=== PATIENT | female | born 1945 | race Caucasian/White ===

== ENCOUNTER 2016-09-12 12:02 | Observation (INO) ==
--- NOTE | 2016-09-12 12:11 | Emergency Department Note ---
Disposition Clinical Impression: Chest pain Qualifiers: Chest pain type: precordial pain Qualified Code(s): R07.2 - Precordial pain Disposition: Admitted As Inpatient Condition: Fair Time of Disposition: 19:38 Chest Pain HPI - General Chief Complaint: ED Chest Pain Stated Complaint: Chest pressure Time Seen by Provider: 09/12/16 12:10 Source: patient Mode of arrival: ambulatory Limitations: no limitations Vital Signs Reviewed: Yes Nursing Notes Reviewed: Yes - History of Present Illness HPI Narrative: 70-year-old female with history of CAD, status post CABG, she pretty presents with chest pressure at rest. She recently had a CABG 3 months prior, patient states that she has had chest pressure for the last 1-2 days. Worsening today, states to 5 out of 10. Similar to previous anginal pain. She also states that she has had trouble with her sternal wires, states that they have become loose at the superior aspect of her sternum. This is causing her some discomfort. Pt complaint: chest pain Onset: during rest Pain Location: substernal Severity: moderate Severity scale (1-10): 5 Pain Radiation: none Improves with: nothing Worsens with: nothing - Related Data Home Medications Medication Instructions Recorded Confirmed Atorvastatin [Lipitor] 80 mg PO HS 10/07/15 09/12/16 Folic Acid 1,600 mcg PO DAILY 10/07/15 09/12/16 Hydrochlorothiazide 25 mg PO DAILY 10/07/15 09/12/16 Multivitamin [Multivitamins] 1 tab PO DAILY 10/07/15 09/12/16 Omeprazole [PriLOSEC] 40 mg PO DAILY 10/07/15 09/12/16 Alendronate Sodium [Fosamax] 70 mg PO QWEEK 10/12/15 09/12/16 Aspirin [Adult Low Dose Aspirin EC] 81 mg PO DAILY 10/12/15 09/12/16 Clopidogrel [Plavix] 75 mg PO DAILY 10/12/15 09/12/16 Cyanocobalamin (Vitamin B-12) 500 mcg PO DAILY 04/23/16 09/12/16 [Vitamin B12] Cholecalciferol (D-3) [Vitamin D] 2,000 unit PO DAILY 09/12/16 09/12/16 Metoprolol [Lopressor] 25 mg PO BID 09/12/16 09/12/16 Allergies Allergy/AdvReac Type Severity Reaction Status Date / Time shellfish derived Allergy Hives Verified 09/12/16 12:12 All systems ED: reviewed and negative except as stated. Constitutional: Denies: fever, chills Eyes: Denies: eye pain, eye discharge ENT ED: Denies: ear pain, throat pain Cardiovascular: Reports: as per HPI, chest pain, dyspnea on exertion. Denies: palpitations, edema, syncope Respiratory: Denies: cough, dyspnea, wheezes Gastrointestinal: Denies: abdominal pain, nausea, vomiting Genitourinary: Denies: urgency, dysuria Musculoskeletal: Denies: back pain, neck pain Neurological: Denies: headache, weakness Chest Pain PMH - Past Medical History Medical history: Reports: arthritis (RA), asthma, coronary artery disease, diabetes, hyperlipidemia, hypertension, myocardial infarction, RA Surgical history: Reports: appendectomy, hysterectomy, orthopedic, other (right wrist), YOANNA/BSO Psychiatric history: Reports: no psych history - Social History Smoking Status: Former smoker Alcohol use: Reports: occasionally Drug use: Reports: none Physical Exam Constitutional: Appears mildly uncomfortable vital signs reviewed and wnl Neck: normal inspection, neck is supple, trachea midline Resp: normal chest inspection, CTA bilaterally, no resp distress CV: RRR, no m/g/r, midline incision consistent with previous CABG, well-healed, no obvious erythema mild ttp sternal superior tenderness GI: normal inspection, Soft, NTND, BS present Back: normal inspection, no tenderness to palpation Neuro: A&O3, no gross motor or sensory deficits bilaterally Skin: No rashes, skin warm, dry, intact Course Course Narrative: 70-year-old female with history of CAD, status post CABG, chest pain workup ordered, likely will be admission at this time I do not feel that she is acute coronary syndrome however will try and see if she is response to nitroglycerin, she is very high risk for heart score of 5, given multiple recent procedures including needed transferred to [facility] she has low threshold for admission. - Reevaluation(s) Reevaluation #1: Patient with a negative EKG and negative troponin, admitted to medicine service in stable condition. Vital Signs Temperature 98.0 F 09/12/16 12:07 Pulse Rate 67 09/12/16 12:07 Respiratory Rate 16 09/12/16 12:07 Blood Pressure 153/72 09/12/16 12:07 O2 Sat by Pulse Oximetry 98 09/12/16 12:07 Temperature 97.6 F 09/12/16 14:52 Pulse Rate 68 09/12/16 14:52 Respiratory Rate 14 09/12/16 14:52 Blood Pressure 150/75 09/12/16 14:52 O2 Sat by Pulse Oximetry 95 09/12/16 14:52 Oxygen Delivery Oxygen Delivery Room Air Chest Pain - Differential Diagnosis Likely: atypical chest pain, chest pain - Medical Records Medical records reviewed: Yes I reviewed the patient's medical records. - Lab Data Lab results reviewed: Yes I reviewed the patient's lab results. Result diagrams: 09/12/16 12:24 09/12/16 12:24 Lab Results 09/12/16 09/12/16 09/12/16 Range/Units 12:24 12:24 12:24 WBC 7.3 (4.3-11.1) K/mcL RBC 5.00 H (3.82-4.97) M/mcL Hgb 14.5 (11.5-15.4) g/dL Hct 44.4 (35.3-44.9) % MCV 88.8 (83.0-100.0) fL MCH 29.0 (28.0-33.3) pg MCHC 32.7 (31.6-35.5) g/dL RDW 15.8 H (11.5-14.5) % Plt Count 192 (140-400) K/mcL MPV 11.2 (9.4-12.4) fL Immature Gran % 0.3 (0-4) % Seg Neutrophils % 60.9 % Lymphocytes % 25.9 % Monocytes % 11.4 % Eosinophils % 1.1 % Basophils % 0.4 % Neutrophils # 4.4 (1.6-8.9) K/mcL Lymphocytes # 1.9 (0.6-4.6) K/mcL Monocytes # 0.8 (0.0-1.3) K/mcL Eosinophils # 0.1 (0.0-0.6) K/mcL Basophils # 0.0 (0.0-0.2) K/mcL Sodium 137 (136-145) mEq/L Potassium 4.2 (3.5-4.5) mEq/L Chloride 100 (98-109) mEq/L Carbon Dioxide 26 (19-29) mEq/L BUN 13 (7-20) mg/dL Creatinine 0.86 (0.57-1.11) mg/dL Est GFR ( Amer) > 60 (> 60) Est GFR (Non-Af Amer) > 60 (> 60) BUN/Creatinine Ratio 15 (6-26) Glucose 103 H (70-99) mg/dL Calculated Osmolality 284 (280-300) Calcium 9.5 (8.6-10.8) mg/dL Troponin I (0-0.03) ng/mL B-Natriuretic Peptide 149 H (0-100) pg/mL 09/12/16 Range/Units 12:24 WBC (4.3-11.1) K/mcL RBC (3.82-4.97) M/mcL Hgb (11.5-15.4) g/dL Hct (35.3-44.9) % MCV (83.0-100.0) fL MCH (28.0-33.3) pg MCHC (31.6-35.5) g/dL RDW (11.5-14.5) % Plt Count (140-400) K/mcL MPV (9.4-12.4) fL Immature Gran % (0-4) % Seg Neutrophils % % Lymphocytes % % Monocytes % % Eosinophils % % Basophils % % Neutrophils # (1.6-8.9) K/mcL Lymphocytes # (0.6-4.6) K/mcL Monocytes # (0.0-1.3) K/mcL Eosinophils # (0.0-0.6) K/mcL Basophils # (0.0-0.2) K/mcL Sodium (136-145) mEq/L Potassium (3.5-4.5) mEq/L Chloride (98-109) mEq/L Carbon Dioxide (19-29) mEq/L BUN (7-20) mg/dL Creatinine (0.57-1.11) mg/dL Est GFR ( Amer) (> 60) Est GFR (Non-Af Amer) (> 60) BUN/Creatinine Ratio (6-26) Glucose (70-99) mg/dL Calculated Osmolality (280-300) Calcium (8.6-10.8) mg/dL Troponin I 0.02 (0-0.03) ng/mL B-Natriuretic Peptide (0-100) pg/mL - Radiology Data Radiology results reviewed: Yes I reviewed the patient's radiology results. Chest X-Ray 09/12/16 12:16 IMPRESSION: Discoid atelectasis overlying the left heart border. Increased lung markings at the right infrahilar region may be related to bronchitis. Superimposed pneumonia is difficult to exclude. Stable borderline cardiomegaly. D/ / Gordon Fermin MD / Gordon Fermin MD Interpreting Provider: Gordon Fermin MD - EKG Data EKG attestation: Yes I reviewed and interpreted this EKG. EKG results narrative: EKG reviewed no evidence of ST segment elevations or depressions, normal sinus rhythm EKG shows normal: sinus rhythm Rate: normal Rhythm: NSR [place]/QRS: normal Interpretation: unchanged when compared to prior tracing (date) Heart Score - Score History: Moderately Suspicious EKG: Non Specific repolarisation Disturbance Age: Greater than 65 Risk Factors: Equal/Greater than 3 risk factor or history of atherosclerotic disease Troponin: Less than normal limit HEART Score Total: 6 Attestation Statement - Attestation Attestation: I examined this patient and my medical decision-making was reviewed with the Resident Physician. I agree with the documented findings, disposition and treatment plan as described except to the extent set forth below. CP free at the time of my eval. Trop negative. Admitting for further work up.
[2016-09-12] MEDS ORDERED: Aspirin 81 MG TAB.CHEW PO ONE (12:17)
[2016-09-12] MEDS ORDERED: Nitroglycerin 0.4 MG TAB.SUBL SL ONE (12:17)
[2016-09-12 12:30] LABS: Basophils % 0.4 %; Eosinophils # 0.1 K/mcL (0.0-0.6); Eosinophils % 1.1 %; Hematocrit 44.4 % (35.3-44.9); Hemoglobin 14.5 g/dL (11.5-15.4); Immature Granulocytes % 0.3 % (0-4); Lymphocytes # 1.9 K/mcL (0.6-4.6); Lymphocytes % 25.9 %; Mean Corpuscular HGB Conc 32.7 g/dL (31.6-35.5); Mean Corpuscular Volume 88.8 fL (83.0-100.0); Mean Platelet Volume 11.2 fL (9.4-12.4); Monocytes # 0.8 K/mcL (0.0-1.3); Monocytes % 11.4 %; Neutrophils # 4.4 K/mcL (1.6-8.9); Platelet Count 192 K/mcL (140-400); Red Cell Distribution Width 15.8 % (11.5-14.5); Segmented Neutrophils % 60.9 %
[2016-09-12 12:43] LABS: BUN/Creatinine Ratio 15 (6-26); Blood Urea Nitrogen 13 mg/dL (7-20); Calcium 9.5 mg/dL (8.6-10.8); Carbon Dioxide 26 mEq/L (19-29); Chloride 100 mEq/L (98-109); Glucose 103 mg/dL (70-99); Osmolality,Calculated 284 (280-300); Potassium 4.2 mEq/L (3.5-4.5); Sodium 137 mEq/L (136-145); eGFR For African Americans > 60 (> 60); eGFR For Non-African Americans > 60 (> 60)
[2016-09-12] MEDS ORDERED: Acetaminophen 325 MG TABLET PO PRN (14:58)
[2016-09-12] MEDS ORDERED: Naloxone 0.4 MG/ML INJ IVP PRN (14:58)
--- NOTE | 2016-09-12 15:13 | Internal Med History&Physical ---
Date of Encounter: 09/12/16 Time of Encounter: 13:45 Assessment and Plan (1) Chest pain Current visit: Yes Status: Acute Chest pain with history of coronary artery disease and coronary artery. High risk for ACS. We will monitor with telemetry overnight in hospital under observation. Trend troponins. Continue home medications including aspirin and statin. Monitor vital signs closely. If troponins are negative, will plan for stress test in the morning. Qualifiers: Chest pain type: precordial pain Qualified Code(s): R07.2 - Precordial pain (2) CAD (coronary artery disease) Current visit: Yes Status: Chronic With chest pain. Continue home medications. Monitor with telemetry. Qualifiers: Coronary Disease-Associated Artery/Lesion type: [place] artery [place] vs. transplanted heart: [place] heart Associated angina: with other forms of angina Qualified Code(s): I25.118 - Atherosclerotic heart disease of [place] coronary artery with other forms of angina pectoris (3) Diabetes Current visit: Yes Status: Chronic Monitor blood sugars. Sliding scale insulin. Diabetic diet Qualifiers: Diabetes mellitus type: type 2 Diabetes mellitus complication status: without complication Diabetes mellitus detention insulin use: without lead application architect use Qualified Code(s): E11.9 - Type 2 diabetes mellitus without complications (4) Essential hypertension Current visit: Yes Status: Chronic At her blood pressure. Continue home medications. Internal Medicine - H&P: HPI Chief complaint: Chest pressure Admitted From: Emergency Dept Plans for Post Hospital Care: Home History of present illness: Ms. Quintanilla is a 70 year old female with a history of coronary artery disease and coronary artery bypass grafting presented to the ER with complaints of chest pain. Her symptoms have been going on for about 1 week now. She had coronary artery bypass grafting in March and since then has been pain-free. However since the past week she has been having central chest pressure that is nonradiating but feels similar to the pain she has had previously. Currently denies any shortness of breath palpitations, orthopnea or PND. No pedal edema either. Her pain responded to nitroglycerin. Past Med Surg Social Fam HX - Past Medical History Attestation: Yes The following information was validated with the patient. Medical history: arthritis (RA), asthma, coronary artery disease, diabetes, hyperlipidemia, hypertension, myocardial infarction, RA Psychiatric history: no psych history - Past Surgical History Surgical History: appendectomy, hysterectomy, orthopedic, other (right wrist), YOANNA/BSO - Social History Smoking Status: Former smoker Smokeless Tobacco Status: No Alcohol use: occasionally Drug use: none - Family History Father Living Status: Hx Family Cardiac Disorders: Yes ([place]) Hx Family Respiratory Disorders: No Hx Family Cancer: Yes (Prostate) Hx Family GI Disorders: No Hx Family Endocrine Disorder: No Hx Family Neuromuscular Disorders: No Hx Family Neurologic Disorders: No Hx Family HEENT Disorders: No Hx Family Autoimmune Disorders: No Mother Hx Family Cardiac Disorders: Yes ([place]) Hx Family Respiratory Disorders: No Hx Family Cancer: No Hx Family GI Disorders: No Hx Family Endocrine Disorder: Yes (DM) Hx Family Neuromuscular Disorders: No Hx Family Neurologic Disorders: No Hx Family HEENT Disorders: No Hx Family Autoimmune Disorders: No Internal Medicine - H&P: Meds Atorvastatin [Lipitor] 80 mg PO HS 10/07/15 [History] Folic Acid 1,600 mcg PO DAILY 10/07/15 [History] Hydrochlorothiazide 25 mg PO DAILY 10/07/15 [History] Multivitamin [Multivitamins] 1 tab PO DAILY 10/07/15 [History] Omeprazole [PriLOSEC] 40 mg PO DAILY 10/07/15 [History] Alendronate Sodium [Fosamax] 70 mg PO QWEEK 10/12/15 [History] Aspirin [Adult Low Dose Aspirin EC] 81 mg PO DAILY 10/12/15 [History] Clopidogrel [Plavix] 75 mg PO DAILY 10/12/15 [History] Cyanocobalamin (Vitamin B-12) [Vitamin B12] 500 mcg PO DAILY 04/23/16 [History] Cholecalciferol (D-3) [Vitamin D] 2,000 unit PO DAILY 09/12/16 [History] Metoprolol [Lopressor] 25 mg PO BID 09/12/16 [History] Allergies shellfish derived Allergy (Verified 09/12/16 12:12) Hives All Systems PM: A 10-system review of systems was performed and is negative for pertinent findings except as documented above in the HPI. - Constitutional Constitutional: no chills, no fever(s), no night sweats - EENT Eyes: no change in vision, no discharge, no pain, no photophobia Ears: no ear discharge, no ear pain, no tinnitus Nose, mouth and throat: no dysphagia, no nasal discharge, no neck pain, no sore throat - Cardiovascular Cardiovascular ROS IM: chest pain, no diaphoresis, no dyspnea, no lightheadedness, no palpitations, no syncope - Respiratory Respiratory: no cough, no dyspnea, no wheezing, no excessive phlegm production - Gastrointestinal Gastrointestinal: no abdominal pain, no diarrhea, no hematemesis, no hematochezia, no melena, no nausea, no vomiting - Genitourinary Genitourinary: no change in urinary stream, no dysuria, no flank pain, no hematuria - Musculoskeletal Musculoskeletal ROS IM: no numbness, no tingling - Integumentary Integumentary IM: no rash, no unusual bruising - Neurological Neurological ROS: no confusion, no convulsions, no focal weakness, no numbness, no tingling, no tremor(s) - Hematologic/Lymphatic Hematologic/Lymphatic: no easy bruising - Constitutional Vitals: Temp Pulse Resp BP Pulse Ox 97.6 F 68 14 150/75 95 09/12/16 14:52 09/12/16 14:52 09/12/16 14:52 09/12/16 14:52 09/12/16 14:52 General appearance: Present: cooperative, mild distress, A&O X 3, pleasant, answers questions appropriately - Eye Eye exam: Present: EOMI, PERRL, conjuntiva pink, sclera anicteric - Neck Neck exam general surgery: Present: supple, trachea midline. Absent: lymphadenopathy - Respiratory Respiratory exam: Present: CTAB. Absent: accessory muscle use, rales, rhonchi, wheezes - Cardiovascular Cardiovascular exam: Present: RRR, +S1, +S2. Absent: diastolic murmur, gallop, rubs, systolic murmur - GI/Abdominal GI/Abdominal exam: Present: normal bowel sounds, soft, no peritoneal signs. Absent: distended, tenderness - Extremities Exam Extremities exam: Present: warm, radial pulses palpable and symetrical. Absent : calf tenderness, cyanotic, pedal edema - Neurological Exam Neurological exam: Present: alert, CN II-XII intact, oriented X3, no focal deficits, strengths equal and symetr throughout. Absent: facial droop, speech deficit - Skin Skin exam: Present: dry, intact Internal Med - H&P Results - Labs CBC & Chem 7: 09/12/16 12:24 09/12/16 12:24 - Attending Attestation This document has been at least partially created by Tasted Menu recognition technology by Dr. Gonsalves. Errors in grammar, wording or other phrases may exist. If errors are found after the documentation is signed, they will be addressed individually in the addendum section of this document when appropriate.
[2016-09-13 05:49] LABS: Basophils % 0.6 %; Eosinophils # 0.1 K/mcL (0.0-0.6); Eosinophils % 1.4 %; Hematocrit 39.9 % (35.3-44.9); Immature Granulocytes % 0.5 % (0-4); Lymphocytes # 1.9 K/mcL (0.6-4.6); Lymphocytes % 28.6 %; Mean Corpuscular HGB Conc 31.3 g/dL (31.6-35.5); Mean Corpuscular Volume 89.3 fL (83.0-100.0); Mean Platelet Volume 11.3 fL (9.4-12.4); Monocytes # 0.9 K/mcL (0.0-1.3); Monocytes % 14.2 %; Neutrophils # 3.6 K/mcL (1.6-8.9); Platelet Count 178 K/mcL (140-400); Red Blood Count 4.47 M/mcL (3.82-4.97); Red Cell Distribution Width 15.8 % (11.5-14.5); Segmented Neutrophils % 54.7 %
[2016-09-13 05:50] LABS: BUN/Creatinine Ratio 15 (6-26); Blood Urea Nitrogen 13 mg/dL (7-20); Calcium 9.2 mg/dL (8.6-10.8); Carbon Dioxide 26 mEq/L (19-29); Chloride 102 mEq/L (98-109); Cholesterol 140 mg/dL (< 200); Glucose 92 mg/dL (70-99); HDL Cholesterol 69 mg/dL (40-59); Hemoglobin 12.5 g/dL (11.5-15.4); LDL Cholesterol,Calculated 55 mg/dL (0-99); Osmolality,Calculated 286 (280-300); Potassium 3.7 mEq/L (3.5-4.5); Sodium 138 mEq/L (136-145); Triglycerides 82 mg/dL (< 150); eGFR For African Americans > 60 (> 60); eGFR For Non-African Americans > 60 (> 60)
[2016-09-13] MEDS ORDERED: Regadenoson 0.4 MG/5 ML SYRINGE IVP ONE (06:26)
--- NOTE | 2016-09-13 09:13 | ECHO - Doppler Report ---
Echocardiogram Name: Leonela Quintanilla Date of Study: 09/12/2016 Date: 1945 Ht: 62.0 in Medical Record#: [id number] Age: 70 Wt: 160.0 lb Gender: Female BSA: 1.74 Order #: [id number] Location: [facility] Room #: [id number] Reading Physician: Naa Mcadams DO Media Senior Recruiter: Rolanda Minor RDCS Ordering Physician: Bryce Gonsalves MD Primary Physician: Brigitte Kirkpatrick MD Indications: Chest pain Impressions: LVEF 60%. Normal left ventricular size and systolic function. Normal right ventricular size and function. No significant valvular dysfunction on this study. No pulmonary hypertension. Left Ventricular Wall Motion: Rest Echo Findings All wall segments showed normal motion. Findings: Study Quality * Technically adequate exam. ECG Findings * Normal sinus rhythm. Left Ventricle * LVEF 60%. * Mild left ventricular diastolic dysfunction. * Normal LV size and wall thickness. Aortic Valve * No aortic regurgitation. * Mildly calcified aortic valve leaflets. * No aortic stenosis on this study. No significant gradient. * Unable to determine number of leaflets. Mitral Valve * Trace mitral regurgitation. * Normal mitral valve structure. * No mitral stenosis. Tricuspid Valve * Tricuspid valve not well visualized. * Trace tricuspid regurgitation. * Estimated RA pressure is 3 mmHg. * Estimated RVSP is 19 mmHg. * No pulmonary hypertension. Pulmonic Valve * Pulmonic valve is not well visualized. * No pulmonic stenosis. * No pulmonic regurgitation. Pulmonary Artery * Pulmonary artery not well visualized. Right Ventricle * Normal right ventricular structure and function. Left Atrium * Normal left atrial size. Right Atrium * Normal right atrial size. Interatrial Septum * Interatrial septum not well evaluated. IVC * Normal IVC dimensions and inspiratory collapse. Aorta * Normally sized aortic root. Pericardium * There is no pericardial effusion present. History Hypertension Diabetes Hypercholesteremia Family History of CAD History of CAD/PTCA Myocardial Infarction 10/13/2015 a Previous Echo was performed. Measurements: BP: 150/ 75 2D Normal Values IVSd: 1.20 cm 0.6 - 1.0 cm LVIDd: 4.05 cm 3.7 - 5.6 cm LVPWd: 1.00 cm 0.6 - 1.1 cm LVIDs: 2.39 cm 1.5 - 3.6 cm AO: 3.20 cm < 4.0 cm LA: 3.20 cm 2.0 - 4.0cm %FS: 41.00 cm >25 % LA volume: 44 Mitral Valve Peak E:.81 m/sec Peak A:1.17 m/sec E/A Ratio:0.7 Peak E' Lat Sj:6.64 cm/s Peak E' Med Sj:7.94 cm/s E/E' Lat Ratio:12.2 E/E' Med Ratio:10.2 Aortic Valve AI pressure Half-time: 692.00 msec Tricuspid Valve TV Regurg Peak Grad: 16.00mmHg TV Regurg Peak Sj: 2.00m/sec Updated by Naa Mcadams on 09/13/2016 9:06:42 AM electronically signed on 09/13/2016 9:08:56 AM with status of Final Wall Motion Paredes: 1=Normal, 2=Hypokinesis, 3=Akinesis, 4=Dyskinesis, 5=Aneurysmal, 6=Hyperkinetic, X=Not Visualized (Blank)=Missing
[2016-09-13] MEDS: Cholecalciferol (D-3) 1,000 UNIT TABLET PO SCH (10:03)
[2016-09-13] MEDS: Cyanocobalamin (B-12) 1,000 MCG TABLET PO SCH (10:03)
[2016-09-13] MEDS: Multivit/Ca/Min/Fe/FA 1 TAB TABLET PO SCH (10:03)
[2016-09-13] MEDS: Aspirin Enteric Coated 81 MG Tablet PO SCH (10:03)
[2016-09-13] MEDS: hydroCHLOROthiazide 25 MG TABLET PO SCH (10:03)
--- NOTE | 2016-09-13 11:43 | Nuclear Medicine Stress Report ---
Regadenoson Nuclear Stress Name: Leonela Quintanilla Date of Study: 09/13/2016 Date: 1945 Ht: 62.0 in Medical Record#: [id number] Age: 70 Wt: 160.0 lb Gender: Female Order #: [id number] Location: [facility] Room: [facility] Supervising Provider: Dede Manning CNP Reading Physician: Naa Mcadams DO Ordering Physician: Margarita Beck CNP Primary Care Physician: Brigitte Kirkpatrick MD Stress Technologist: Kristopher Aparicio CRT Quality Assurance Supervisor: Aleksandr Price Indications: Chest Pain, Coronary Artery Disease Impression: Mild reversible ischemia in the distal inferolateral wall. Pharmacologic ECG was negative for ischemia at the level of heart rate achieved. Gated EF = >70%. Low risk findings. Results communicated to ordering clinician. History: Hypertension Hypercholesteremia History of Coronary Artery Bypass Surgery Stress Test Summary: Stress Test Type: Pharmacologic Baseline Information: Initial Heart Rate: 64 Blood Pressure: 144/68 Stress Information: Test Terminated Due to (primary): As per protocol Maximum Blood Pressure: 138/68 Maximum Heart Rate: 76 Percent Maximum Heart Rate Achieved: 52 Double Product: [id number] METS Reached: 1 Symptoms: No chest symptoms Nuclear Summary: SPECT myocardial perfusion imaging using Tc99m Sestamibi given intravenously was performed at rest and following cardiac stress testing. The resting images were obtained following initial dose of 11.6 mCi. Following stress an additional dose of 35.2 mCi was given at peak exercise or 30 seconds post regadenoson infusion. Medication Given: Time Medication Dose Units Route Findings: Stress Note * Resting ECG demonstrated normal sinus rhythm with RV conduction delay. * Pharmacologic stress ECG is negative for ischemia at level of heart rate achieved. * No arrhythmias were noted during stress. * Patient had no chest pain during stress. Hemodynamic responses * Normal hemodynamic responses to pharmacologic stress. Study Quality * Study quality was fair. Gated EF > 70% * Gated EF > 70%. Left Ventricle * The left ventricle is not dilated. TID * No evidence of transient ischemic dilatation. Lung Uptake * There is no evidence of increase lung uptake. NORMALS * Normal wall motion. PERFUSION * Normal rest perfusion imaging. * There is a small sized, mild intensity perfusion defect during stress involving the distal inferolateral wall. * Otherwise normal stress perfusion. Updated by Naa Mcadams on 09/13/2016 11:34:55 AM electronically signed on 09/13/2016 11:37:37 AM with status of Final
--- NOTE | 2016-09-13 12:09 | Electrocardiograph Report ---
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
--- NOTE | 2016-09-13 13:23 | Internal Med Progress Note ---
Date of Encounter: 09/13/16 Time of Encounter: 12:40 - Assessment and plan (1) Chest pain Current Visit: Yes Status: Acute Assessment and plan: 1 week history of diffuse chest pressure without radiation, intermittent, worse at night and worse lying down. Denies n/v or diaphoresis. Frequency and intensity increased yesterday, bringing her to ED for evaluation. Troponins were negative. EKG NSR. Pt states that she is still having pain. Echo done last night, LVEF 60%, normal LV size and systolic fx, normal R ventricular size and function, no pulmonary htn, no valvular dysfunction. Stress test today revealed mild reversibel ischemia in the distal inferolateral wall, cardiology consulted to see pt. Telemetry Maintain ASA and statin home doses Cardiology consult Qualifiers: Chest pain type: precordial pain Qualified Code(s): R07.2 - Precordial pain (2) CAD (coronary artery disease) Current Visit: Yes Status: Chronic Assessment and plan: Plan as above. Pt still having diffuse chest pressure at this time. Qualifiers: Coronary Disease-Associated Artery/Lesion type: [place] artery [place] vs. transplanted heart: [place] heart Associated angina: with other forms of angina Qualified Code(s): I25.118 - Atherosclerotic heart disease of [place] coronary artery with other forms of angina pectoris (3) Diabetes Current Visit: Yes Status: Chronic Assessment and plan: Pt has not had A1c done here, but accuchecks wnl Diabetic diet Sliding scale insulin accuchecks achs Qualifiers: Diabetes mellitus type: type 2 Diabetes mellitus complication status: without complication Diabetes mellitus retirement insulin use: without retirement use Qualified Code(s): E11.9 - Type 2 diabetes mellitus without complications (4) Essential hypertension Current Visit: Yes Status: Chronic Assessment and plan: Normotensive. continue home medications, antihypertensives. - Time Spent With Patient less than 15 minutes - Subjective Interval history: Pt reports 1 week history of diffuse, intermittent chest pressure, worse at night and worse when lying down. Yesterday the frequency and intensity were both increased, which brought her to the ED for evaluation. Pt denies radiation , nausea, vomiting, or diaphoresis. She is still currently having the pressure. - Constitutional Vitals: Temp Pulse Resp BP Pulse Ox 97.9 F 61 16 121/68 95 09/13/16 11:39 09/13/16 11:39 09/13/16 11:39 09/13/16 11:39 09/13/16 11:39 General appearance: Present: cooperative, mild distress, A&O X 3, pleasant, answers questions appropriately - Head Head exam: Present: normal inspection - Eye Eye exam: Present: normal appearance, conjuntiva pink - ENT ENT exam: Present: mucous membranes moist, normal exam - Neck Neck exam general surgery: Present: normal inspection. Absent: lymphadenopathy , tenderness - Respiratory Respiratory exam: Present: rhonchi, wheezes. Absent: chest wall tenderness, decreased breath sounds Additional comments: Pt had ronchi in L apex that cleared with cough and faint exp wheezing in L base. - Cardiovascular Cardiovascular exam: Present: RRR, +S1, +S2 - Expanded Cardiovascular Exam Peripheral pulses: 2+: Dorsalis Pedis (L) PM, Dorsalis Pedis (R) PM - GI/Abdominal GI/Abdominal exam: Present: normal bowel sounds, soft. Absent: guarding, tenderness - Extremities Exam Extremities exam: Present: normal capillary refill, normal inspection, warm, radial pulses palpable and symetrical. Absent: joint swelling, pedal edema, tenderness - Neurological Exam Neurological exam: Present: alert, oriented X3, no focal deficits, strengths equal and symetr throughout. Absent: facial droop, speech deficit Internal Medicine: Result - Labs CBC & Chem 7: 09/13/16 01:32 09/13/16 01:32 Labs: Short CBC 09/13/16 Range/Units 01:32 WBC 6.5 (4.3-11.1) K/mcL Hgb 12.5 D (11.5-15.4) g/dL Hct 39.9 (35.3-44.9) % Plt Count 178 (140-400) K/mcL Neutrophils # 3.6 (1.6-8.9) K/mcL BMP 09/13/16 01:32 Sodium 138 Potassium 3.7 Chloride 102 Carbon Dioxide 26 BUN 13 Creatinine 0.89 Glucose 92 Calcium 9.2 Cardiac Enzymes 09/12/16 09/13/16 Range/Units 19:00 01:32 Troponin I 0.02 0.02 (0-0.03) ng/mL Consult Discharge Plan - Plan Referrals: Brigitte Kirkpatrick MD [Primary Care Provider] -
--- NOTE | 2016-09-13 14:14 | Cardiology Consult Note ---
Date of Encounter: 09/13/16 Time of Encounter: 13:45 Assessment and Plan (1) Abnormal stress test Current Visit: Yes Status: Acute Patient presented with 2-week history of atypical chest pressure--different than prior angina, HI. Troponin negative x3. No ischemic ECG changes. Regadenoson nuclear test today demonstrated mild reversible ischemia to distal inferolateral wall, gated EF 70%. TTE: EF 60%, no significant valvular dysfunction, normal wall motion. CXR demonstrates possible pneumonia and bronchits; reports 2 week history of URI symptoms. Reports chest pressure worsens with laying down, improves with sitting up. Given low-risk findings and atypical pain, recommend medical management. Will add low dose nitrate to home CV medications. Recommend close outpatient follow- up. Patient is agreeable with plan. Follow-up with Dr. Kearney as scheduled on 10/03/16 at 9:45 AM. (2) CAD (coronary artery disease) Current Visit: Yes Status: Chronic Hx of CAD s/p failed PCI to ostial RCA lesion with subsequent 2v CABG at [facility] in March 2016. Continue home CV medications including asa, statin, and betablocker. Low dose nitrate added. Plan as above. Qualifiers: Coronary Disease-Associated Artery/Lesion type: [place] artery [place] vs. transplanted heart: [place] heart Associated angina: with stable angina Qualified Code(s): I25.118 - Atherosclerotic heart disease of [place] coronary artery with other forms of angina pectoris Discussion w patient/family: The assessment and plan as outlined above was discussed with the patient and/or family members who expressed understanding and agreement. All questions were answered. Thank you for involving us in the care of your patient. Please call with any questions. The patient will be discussed and reviewed with Dr. Johnnie Bobby; changes to be made accordingly. History of Present Illness Consult date: 09/13/16 Requesting physician: Margarita Beck Consult reason: Abnormal stress test Chief complaint: Chest pressure History of present illness: Ms. Quintanilla is a 70 year old female with PMH significant for CAD s/p PCI and CABG , HTN, and HLD who presented to the ED with a 2-week history of intermittent chest pressure. Associated symptoms include nasal drainage and sinus pressure, she reports she saw her PCP a week ago for similar symptoms. Chest pressure is described as mild and is felt across chest--worsens with laying down, lasts 2 minutes to an hour; nothing seems to improve pain. She reports pain is not the same as angina equivalent. Recently had 2v CABG (FISHER-LAD, SVG-PDA) at [facility] on 04/30/16. She reports she has completed cardiac rehab without issues. She is enrolled in 2 different exercise programs presently and has no pain or discomfort with exertion/ exercise. Prior CV testing/procedures includes: TTE 10/05/15: LVEF 60%, mild diastolic dysfunction, normal RV size and function , mild-moderate (mean gradient 23 mmHg), mild MR, normal RVSP Limited TTE 10/13/15: LVEF 60%, mild basal-mid inferior hypokinesis. LHC 10/08/15: NABEEL to 99% ostial RCA stenosis LHC 01/16/16: high grade ISR of ostial RCA stent, 50% ostial LAD stenosis, underwent complex PCI of ostial RCA with NABEEL. LHC 04/23/16: 99% ISR of ostial RCA. patient was transferred to [facility] CABG 04/30/16 at [facility]: FISHER to LAD, SVG to PDA Intraoperative ALICIA 04/30/16: mild , mild-moderate MR (ischemic), LVEF 55-60 % (mild hypokinesis of basal inferior wall), normal RV size and function, severe atheromatous disease throughout the aorta. Past Med Surg Social Fam HX - Past Medical History Attestation: Yes The following information was validated with the patient. Source: patient, old records reviewed Medical history: arthritis (RA), asthma, coronary artery disease, diabetes, hyperlipidemia, hypertension, myocardial infarction, RA Psychiatric history: no psych history - Past Surgical History Surgical History: appendectomy, hysterectomy, orthopedic, other (right wrist), YOANNA/BSO - Social History Smoking Status: Former smoker Smokeless Tobacco Status: No Alcohol use: occasionally Drug use: none - Family History Father Living Status: Hx Family Cardiac Disorders: Yes (HI) Hx Family Respiratory Disorders: No Hx Family Cancer: Yes (Prostate) Hx Family GI Disorders: No Hx Family Endocrine Disorder: No Hx Family Neuromuscular Disorders: No Hx Family Neurologic Disorders: No Hx Family HEENT Disorders: No Hx Family Autoimmune Disorders: No Mother Hx Family Cardiac Disorders: Yes (HI) Hx Family Respiratory Disorders: No Hx Family Cancer: No Hx Family GI Disorders: No Hx Family Endocrine Disorder: Yes (DM) Hx Family Neuromuscular Disorders: No Hx Family Neurologic Disorders: No Hx Family HEENT Disorders: No Hx Family Autoimmune Disorders: No Medications and Allergies Atorvastatin [Lipitor] 80 mg PO HS 10/07/15 [History] Folic Acid 1,600 mcg PO DAILY 10/07/15 [History] Hydrochlorothiazide 25 mg PO DAILY 10/07/15 [History] Multivitamin [Multivitamins] 1 tab PO DAILY 10/07/15 [History] Omeprazole [PriLOSEC] 40 mg PO DAILY 10/07/15 [History] Alendronate Sodium [Fosamax] 70 mg PO QWEEK 10/12/15 [History] Aspirin [Adult Low Dose Aspirin EC] 81 mg PO DAILY 10/12/15 [History] Clopidogrel [Plavix] 75 mg PO DAILY 10/12/15 [History] Cyanocobalamin (Vitamin B-12) [Vitamin B12] 500 mcg PO DAILY 04/23/16 [History] Cholecalciferol (D-3) [Vitamin D] 2,000 unit PO DAILY 09/12/16 [History] Ferrous Sulfate [Iron] 325 mg PO QDPC 09/12/16 [History] Hydroxychloroquine [Plaquenuil] 200 mg PO BID 09/12/16 [History] Metoprolol [Lopressor] 25 mg PO BID 09/12/16 [History] Allergies shellfish derived Allergy (Verified 09/12/16 12:12) Hives All Systems Review: A 10-system review of systems was performed and is negative for pertinent findings except as documented above in the HPI. - Cardiovascular Cardiovascular: as per HPI Physical Examination Vital Signs, Last 4 Hours Temp Pulse Resp BP Pulse Ox 09/13/16 11:39 97.9 F 61 16 121/68 95 General: Conversant, No Apparent Distress HEENT: Atraumatic, Normocephaly, Mucus Membranes Moist Neck: No JVD Cardiac: Reg Rate and Rhythm, Normal S1 and S2 Lungs: Normal Breath Sounds Neuro: Alert and responsive Abdomen: Soft Skin: No rashes noted on visualized skin Musculoskeletal: No Chest Wall Tenderness Extremities: No Edema, Normal Pulses Results 09/13/16 01:32 09/13/16 01:32 Lab Results 09/12/16 09/13/16 09/13/16 19:00 01:32 01:32 WBC 6.5 Hgb 12.5 D Hct 39.9 Plt Count 178 Sodium Potassium Chloride Carbon Dioxide BUN Creatinine Glucose Calcium Troponin I 0.02 0.02 09/13/16 01:32 WBC Hgb Hct Plt Count Sodium 138 Potassium 3.7 Chloride 102 Carbon Dioxide 26 BUN 13 Creatinine 0.89 Glucose 92 Calcium 9.2 Troponin I - Imaging and Cardiology Stress Test: report reviewed Echo: report reviewed Other Results: 12 hour tele: avg HR=67 SR. No significant event or pause noted. - EKG Interpretation EKG results cardiology: personally reviewed Consult Discharge Plan - Plan Referrals: Brigitte Kirkpatrick MD [Primary Care Provider] - Alfredo Kearney MD [Partnered Physician] - 10/03/16 9:45 am
--- NOTE | 2016-09-13 14:21 | Electrocardiograph Report ---
[address] [place] [address] Test Date: 2016-09-13 Pat Name: Leoneal Quintanilla Department: 113 Room: 3B22 Gender: F Vp Of [employer] Strategy: : 1945 Requested By: Bryce Gonsalves Order Number: [id number] Reading MD: Reyes Samson MD Measurements Intervals [place] Rate: 58 P: 29 HI: 199 QRS: -14 QRSD: 112 T: -12 QT: 463 QTc: 460 Interpretive Statements SINUS BRADYCARDIA INFERIOR MYOCARDIAL INFARCTION, OF INDETERMINATE AGE Poor R wave progression Electronically Signed On 09-13-2016 14:20:25 EDT by Reyes Samson MD
[2016-09-13] MEDS: Isosorbide MONOnitrate (24 HR) 30 MG TAB.ER.24H PO SCH (16:33)
[2016-09-13] MEDS: Loratadine 10 MG TABLET PO SCH (17:28)
[2016-09-13] MEDS ORDERED: Azithromycin 500 MG in D5% in Water 250 ML IVPB SCH (18:00)
[2016-09-14 05:40] LABS: Basophils % 0.4 %; Eosinophils # 0.1 K/mcL (0.0-0.6); Eosinophils % 1.8 %; Hemoglobin 12.6 g/dL (11.5-15.4); Immature Granulocytes % 0.5 % (0-4); Lymphocytes # 1.7 K/mcL (0.6-4.6); Lymphocytes % 30.9 %; Mean Corpuscular HGB Conc 31.5 g/dL (31.6-35.5); Mean Corpuscular Hemoglobin 28.1 pg (28.0-33.3); Mean Corpuscular Volume 89.1 fL (83.0-100.0); Mean Platelet Volume 11.2 fL (9.4-12.4); Monocytes # 0.8 K/mcL (0.0-1.3); Neutrophils # 2.9 K/mcL (1.6-8.9); Platelet Count 173 K/mcL (140-400); Red Blood Count 4.49 M/mcL (3.82-4.97); Red Cell Distribution Width 15.8 % (11.5-14.5); Segmented Neutrophils % 51.4 %
[2016-09-14 05:57] LABS: BUN/Creatinine Ratio 15 (6-26); Blood Urea Nitrogen 14 mg/dL (7-20); Calcium 9.1 mg/dL (8.6-10.8); Carbon Dioxide 26 mEq/L (19-29); Chloride 103 mEq/L (98-109); Glucose 89 mg/dL (70-99); Osmolality,Calculated 286 (280-300); Sodium 138 mEq/L (136-145); eGFR For African Americans > 60 (> 60); eGFR For Non-African Americans 59 (> 60)
[2016-09-14 06:06] LABS: Hemoglobin A1C 5.9 %
[2016-09-14] MEDS: Isosorbide MONOnitrate (24 HR) 30 MG TAB.ER.24H PO SCH (09:34)
[2016-09-14] MEDS: hydroCHLOROthiazide 25 MG TABLET PO SCH (09:34)
[2016-09-14] MEDS: Cyanocobalamin (B-12) 1,000 MCG TABLET PO SCH (09:34)
[2016-09-14] MEDS: Loratadine 10 MG TABLET PO SCH (09:34)
[2016-09-14] MEDS: Cholecalciferol (D-3) 1,000 UNIT TABLET PO SCH (09:34)
[2016-09-14] MEDS: Aspirin Enteric Coated 81 MG Tablet PO SCH (09:34)
[2016-09-14] MEDS: Multivit/Ca/Min/Fe/FA 1 TAB TABLET PO SCH (09:34)
[2016-09-14 11:16] VITALS: BP 124/72
--- NOTE | 2016-09-14 12:37 | Discharge Summary ---
Date of Encounter: 09/14/16 Time of Encounter: 07:45 - Discharge Diagnosis (1) CAP (community acquired pneumonia) Priority: Primary Status: Acute Comments: Pt began having a slight cough yesterday and congestion in her chest. Pt states that she was feeling wheezy and that she had a cold, reported rhinorrhea. Chest xray from admission could not exclude superimposed pneumonia, increased lung markings at the right infrahilar region may be related to bronchitis, and discoid atelectasis overlying the left heart border. Pt denies that anyone else at home or family are ill. Pt has been afebrile since admission, normotensive, and non-tachycardic. Lungs are clear today. She has maintained oxygen saturation > 93% on room air. I treated her last night with Rocephin and Azithromycin and pt states that she feels much better today and that she has not had chest pain since last night. She states that she is ready to go home Zithromax 500mg po daily x 5 days Amoxicillina 1gram po tid x 5 days. Pt states that she already as an inhaler at home and does not need another. Pt states that she will make an appointment to follow up with PCP within the next week. (2) Chest pain Priority: Secondary Status: Resolved Comments: Pt was admitted on 09/12 for 1 week history of chest pain that was similar to the chest pain that she had prior to her CABG 3 months ago. She denied n/v, radiation, SOB. Pain was intermittent and worse at night and when lying down. Troponins were negative, as were stress and echo. Pt was seen by cardiology and low dose nitrate was added to home medications. Pt states that she has not had chest pain since last night and that she feels much better. Resume home medications Low dose nitrate Maintain statin Qualifiers: Chest pain type: precordial pain Qualified Code(s): R07.2 - Precordial pain (3) CAD (coronary artery disease) Priority: Secondary Status: Chronic Comments: Plan as above. continue home medications, asa, statin, nitrate. Qualifiers: Coronary Disease-Associated Artery/Lesion type: [place] artery [place] vs. transplanted heart: [place] heart Associated angina: with stable angina Qualified Code(s): I25.118 - Atherosclerotic heart disease of [place] coronary artery with other forms of angina pectoris (4) Diabetes Priority: Secondary Status: Chronic Comments: A1c 5.9% and accuchecks have been WNL. Continue home medications Diabetic diet Follow up with PCP as scheduled. 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 Will continue home medications. - Discharge Medications Prescriptions: Amoxicillin [Amoxil] 500 mg PO TID #30 capsule Azithromycin [Zithromax Tri-Nathan] 500 mg PO DAILY #5 tablet Isosorbide MONOnitrate (24 HR) [Imdur] 30 mg PO DAILY #30 tab.er.24h Home Medications: Atorvastatin [Lipitor] 80 mg PO HS 10/07/15 [History] Folic Acid 1,600 mcg PO DAILY 10/07/15 [History] Hydrochlorothiazide 25 mg PO DAILY 10/07/15 [History] Multivitamin [Multivitamins] 1 tab PO DAILY 10/07/15 [History] Omeprazole [PriLOSEC] 40 mg PO DAILY 10/07/15 [History] Alendronate Sodium [Fosamax] 70 mg PO QWEEK 10/12/15 [History] Aspirin [Adult Low Dose Aspirin EC] 81 mg PO DAILY 10/12/15 [History] Clopidogrel [Plavix] 75 mg PO DAILY 10/12/15 [History] Cyanocobalamin (Vitamin B-12) [Vitamin B12] 500 mcg PO DAILY 04/23/16 [History] Cholecalciferol (D-3) [Vitamin D] 2,000 unit PO DAILY 09/12/16 [History] Ferrous Sulfate [Iron] 325 mg PO QDPC 09/12/16 [History] Hydroxychloroquine [Plaquenuil] 200 mg PO BID 09/12/16 [History] Metoprolol [Lopressor] 25 mg PO BID 09/12/16 [History] Amoxicillin [Amoxil] 500 mg PO TID #30 capsule 09/14/16 [Rx] Azithromycin [Zithromax Tri-Nathan] 500 mg PO DAILY #5 tablet 09/14/16 [Rx] Isosorbide MONOnitrate (24 HR) [Imdur] 30 mg PO DAILY #30 tab.er.24h 09/14/16 [ Rx] Allergies/Adverse Reactions: Allergies shellfish derived Allergy (Verified 09/12/16 12:12) Hives Procedures/tests Complete & Pending: Procedures Performed prior 72 hours Category Date Time Status NM bernadette perf SPECT multi [NM] Routine Exams 09/12/16 15:01 Taken ECG 12 lead ECG [ECG] AM 0600 Y 09/13/16 06:00 Completed EV echocardiogram Routine Y 09/12/16 15:00 Completed SP pharm nuclear stress Routine Y 09/13/16 07:45 Completed Date of admission: 09/12/16 14:06 Primary care physician: Brigitte Kirkpatrick, Consults: 09/13/16 13:27 Consult to Cardiology [CONS] Routine Comment: Consulting Provider: Cardiology Faith Reason for Consult: chest pain, mild ischemia on stress Time Notified: 13:27 Call Completed: Yes Discharging clinician: Margarita Beck Anticipated date of discharge: 09/14/16 - Patient Status Disposition: Home, Self-Care Condition: Good Functional capacity at discharge: independent ambulation Overall status at discharge: patient is progressing back to baseline - Discharge Instructions Follow Up With: Alfredo Kearney MD [Partnered Physician] - 10/03/16 9:45 am Brigitte Kirkpatrick MD [Primary Care Provider] - 09/21/16 11:40 am Additional Instructions: Take your medications as written until gone Follow up with your family doctor as soon as you can, please call today for an appointment Follow up with cardiology as scheduled Return for fever, chills, shortness of breath, back pain, difficulty breathing, increased sputum production, wheezing, increased cough, nausea and/or vomiting, or for any other symptom or concern that you may have. - Diet and Activity Activity: increase activity as tolerated Diet: advance to your usual diet Hospital course: Ms. Quintanilla is a 70 year old female who was admitted to the hospital on 09/12 for a one week history of chest pain. Pt denies radiation, SOB, N/V. Pt had full cardiac workup with echo and stress, both negative, and negative serial troponins. EKG without ischemic changes. Stress test showed mild reversible ischemia to distal inferolateral wall with a gated EF of 70%. ECHO LVEF 60%, normal wall motion. Pt was given low dose nitrate to add to home medications by cardiology. Chest xray demonstrated possible pneumonia or bronchitis, ateletasis overlying the L heart border, increased lung markings at the right infrahilar region may be related to bronchitis, superimposed pneumonia is difficult to exclude. With pt's age and history of chest pain, worse with lying down, URI symptoms, and ronchorous lung sounds, I treated her with Rocephin 1 gram IV and Azithromycin 500mg IV. Today, pt states that she feels much better and feels as if she is ready to go home. Vitals have been stable, afebrile, no tachycardia, no hypotension,and no leukocytosis. Pt will be sent home with prescriptions for Amoxicillin and Azithromycin. She states that she already has an inhaler at home, it is not , and she had been using it prior to admission for URI symptoms. I discussed at length with her the importance of follow up care and returning for any fever, chills, productive cough, weakness, SOB, or any other symptom that is concerning to her. One more dose of IV Rocephin will be given prior to discharge. She voiced understanding and states that she is ready to go home. Pt is stable for discharge. - Time Spent with Patient Total time spent providing and/or coordinating discharge services: Less than 30 minutes - Constitutional Vitals: Temp Pulse Resp BP Pulse Ox 97.6 F 66 17 124/72 96 09/14/16 11:15 09/14/16 11:15 09/14/16 11:15 09/14/16 11:15 09/14/16 11:15 General appearance: Present: cooperative, mild distress, A&O X 3, pleasant, answers questions appropriately - Head Head exam: Present: normal inspection - Eye Eye exam: Present: normal appearance, conjuntiva pink - ENT ENT exam: Present: mucous membranes moist, normal exam - Neck Neck exam general surgery: Present: normal inspection. Absent: lymphadenopathy , tenderness - Respiratory Respiratory exam: Present: CTAB. Absent: chest wall tenderness, decreased breath sounds, rales, rhonchi, stridor, wheezes, tachypnea - Cardiovascular Cardiovascular exam: Present: RRR, +S1, +S2. Absent: diastolic murmur, systolic murmur - Expanded Cardiovascular Exam Peripheral pulses: 2+: Dorsalis Pedis (L) PM, Dorsalis Pedis (R) PM - GI/Abdominal GI/Abdominal exam: Present: normal bowel sounds, soft. Absent: tenderness - Extremities Exam Extremities exam: Present: full ROM, normal capillary refill, normal inspection , warm, radial pulses palpable and symetrical. Absent: joint swelling, pedal edema - Neurological Exam Neurological exam: Present: alert, oriented X3, strengths equal and symetr throughout
== END 2016-09-14 17:46 | disposition home or self-care (01) ==
LOC: EMEROO 12:02 → 3BNU 12:02
PROVIDERS: ADMIT Internal Medicine; ATTEND Registered Nurse

== ENCOUNTER 2017-08-11 16:02 | Observation (INO) ==
[2017-08-11] MEDS ORDERED: Aspirin 81 MG TAB.CHEW PO ONE (16:23)
[2017-08-11 16:34] LABS: Basophils # 0.1 K/mcL (0.0-0.2); Basophils % 0.6 %; Eosinophils # 0.1 K/mcL (0.0-0.6); Eosinophils % 1.2 %; Hematocrit 40.5 % (35.3-44.9); Hemoglobin 13.4 g/dL (11.5-15.4); Immature Granulocytes % 0.6 % (0-4); Lymphocytes # 2.4 K/mcL (0.6-4.6); Lymphocytes % 26.7 %; Mean Corpuscular HGB Conc 33.1 g/dL (31.6-35.5); Mean Corpuscular Hemoglobin 29.3 pg (28.0-33.3); Mean Corpuscular Volume 88.6 fL (83.0-100.0); Mean Platelet Volume 10.8 fL (9.4-12.4); Monocytes # 1.1 K/mcL (0.0-1.3); Monocytes % 11.6 %; Neutrophils # 5.4 K/mcL (1.6-8.9); Platelet Count 226 K/mcL (140-400); Red Blood Count 4.57 M/mcL (3.82-4.97); Red Cell Distribution Width 13.5 % (11.5-14.5); Segmented Neutrophils % 59.3 %
[2017-08-11] MEDS ORDERED: Nitroglycerin 0.4 MG TAB.SUBL SL PRN (16:36)
--- NOTE | 2017-08-11 16:39 | Emergency Department Note ---
Disposition Clinical Impression: Chest pain of uncertain etiology Disposition: Admitted As Inpatient Condition: Fair Time of Disposition: 21:38 Chest Pain HPI - General Chief Complaint: ED Chest Pain Stated Complaint: CP Time Seen by Provider: 08/11/17 16:19 Source: patient Mode of arrival: ambulatory Limitations: no limitations Vital Signs Reviewed: Yes Nursing Notes Reviewed: Yes - History of Present Illness HPI Narrative: Mrs. Quintanilla, 71-year-old female, presents from home for evaluation of chest pain. Onset 3 and this morning. Woke up from sleep. She is a history of GERD requiring her to lay reclined initially suspected this may been GERD-like symptoms; it was not improved with an antiacid. She describes her symptoms as a sharp heaviness across her sternum, nonradiating, with associated dyspnea. She also had right face pain associated with the most intense chest pain. Improved with a single sublingual nitroglycerin at home. These symptoms are reminiscent to her prior episodes of chest pain or cardiac in nature; "De ja vu " as the patient put it. Patient's history of stent 3-first digit failed up to 3 months, she was re-stented, this failed after 3 months. She then had open heart surgery with the need for subsequent stenting postoperative. Her chest pain persists at this time. Severity scale (1-10): 4 - Related Data Home Medications Medication Instructions Recorded Confirmed Atorvastatin [Lipitor] 80 mg PO HS 10/07/15 04/24/17 Multivitamin [Multivitamins] 1 tab PO DAILY 10/07/15 04/24/17 hydroCHLOROthiazide 25 mg PO DAILY 10/07/15 04/24/17 [Hydrochlorothiazide] Aspirin [Adult Low Dose Aspirin EC] 81 mg PO DAILY 10/12/15 04/24/17 Clopidogrel [Plavix] 75 mg PO DAILY 10/12/15 04/24/17 Cyanocobalamin (Vitamin B-12) 500 mcg PO DAILY 04/23/16 04/24/17 [Vitamin B12] Cholecalciferol (D-3) [Vitamin D] 2,000 unit PO DAILY 09/12/16 04/24/17 Metoprolol [Lopressor] 25 mg PO BID 09/12/16 04/24/17 Albuterol Sulfate [Albuterol 0 puff IH Q4HR 04/24/17 04/24/17 Inhaler] Fluticasone/Vilanterol [Breo 1 each IH DAILY 04/24/17 04/24/17 Ellipta 100-25 Mcg INH] Nitroglycerin [Nitrostat] 0.4 mg SL Q3-5MIN PRN 04/24/17 04/24/17 Ranitidine HCl [Acid Audiovisual Aids Technician] 150 mg PO BID 04/24/17 04/24/17 Ranolazine [Ranexa] 500 mg PO BID 04/24/17 04/24/17 Allergies Allergy/AdvReac Type Severity Reaction Status Date / Time Amoxicillin Allergy See Verified 02/24/17 14:56 Comments cephalexin [From Keflex] Allergy See Verified 02/24/17 14:56 Comments isosorbide [From Imdur] Allergy See Verified 02/24/17 14:56 Comments shellfish derived Allergy Hives Verified 02/24/17 14:56 All systems ED: reviewed and negative except as stated. Review of Systems: As Per HPI Chest Pain PMH - Past Medical History Medical history: Reports: arthritis, asthma, coronary artery disease, diabetes, hyperlipidemia, hypertension, myocardial infarction, RA Surgical history: Reports: appendectomy, hysterectomy, orthopedic, other, YOANNA/ BSO Psychiatric history: Reports: no psych history OUTREACH CLINICIAN history: Reports: no OUTREACH CLINICIAN history - Social History Smoking Status: Former smoker Alcohol use: Reports: occasionally Drug use: Reports: none Physical Exam - General Limitations: no limitations General appearance: alert, in no apparent distress Course Course Narrative: Patient story and medical history a very concerning for cardiac etiology of her chest pain. Chest x-ray is unremarkable per radiology read. EKG shows no acute ischemic changes and initial troponin is 0.03. Patient's chest pain is improved with some liquid nitroglycerin. I discussed the patient with the on-call infrastructure developer who is also patient's infrastructure developer, Dr. Samson. He is on board with admission for chest pain rule out ACS as well as heparinization at this time. I discussed heparinization with patient and she is in agreement. Vital Signs Temperature 99.6 F 08/11/17 16:15 Pulse Rate 78 08/11/17 16:15 Respiratory Rate 18 08/11/17 16:15 Blood Pressure 144/78 08/11/17 16:15 O2 Sat by Pulse Oximetry 96 08/11/17 16:15 Temperature 97.5 F L 08/11/17 19:58 Pulse Rate 73 08/11/17 19:58 Respiratory Rate 18 08/11/17 19:58 Blood Pressure 139/69 08/11/17 19:58 O2 Sat by Pulse Oximetry 94 08/11/17 19:58 Oxygen Delivery Oxygen Delivery Room Air Chest Pain - Medical Records Medical records reviewed: Yes I reviewed the patient's medical records. - Lab Data Lab results reviewed: Yes I reviewed the patient's lab results. Result diagrams: 08/11/17 16:21 08/11/17 16:21 Lab Results 08/11/17 08/11/17 08/11/17 Range/Units 16:21 16:21 16:21 WBC 9.1 (4.3-11.1) K/mcL RBC 4.57 (3.82-4.97) M/mcL Hgb 13.4 (11.5-15.4) g/dL Hct 40.5 (35.3-44.9) % MCV 88.6 (83.0-100.0) fL MCH 29.3 (28.0-33.3) pg MCHC 33.1 (31.6-35.5) g/dL RDW 13.5 (11.5-14.5) % Plt Count 226 (140-400) K/mcL MPV 10.8 (9.4-12.4) fL Immature Gran % 0.6 (0-4) % Seg Neutrophils % 59.3 % Lymphocytes % 26.7 % Monocytes % 11.6 % Eosinophils % 1.2 % Basophils % 0.6 % Neutrophils # 5.4 (1.6-8.9) K/mcL Lymphocytes # 2.4 (0.6-4.6) K/mcL Monocytes # 1.1 (0.0-1.3) K/mcL Eosinophils # 0.1 (0.0-0.6) K/mcL Basophils # 0.1 (0.0-0.2) K/mcL PT (9.4-12.1) Seconds INR APTT (26.0-36.0) Seconds Sodium 136 (136-145) mEq/L Potassium 3.5 (3.5-5.1) mEq/L Chloride 98 (98-107) mEq/L Carbon Dioxide 28 (23-29) mEq/L BUN 24 H (8-23) mg/dL Creatinine 1.15 (0.60-1.20) mg/dL Est GFR ( Amer) 56 L (> 60) Est GFR (Non-Af Amer) 46 L (> 60) BUN/Creatinine Ratio 21 (6-26) Glucose 114 H (70-105) mg/dL Calculated Osmolality 287 (280-300) Calcium 9.8 (8.6-10.3) mg/dL Troponin I 0.03 (< 0.04) ng/mL 08/11/17 Range/Units 16:21 WBC (4.3-11.1) K/mcL RBC (3.82-4.97) M/mcL Hgb (11.5-15.4) g/dL Hct (35.3-44.9) % MCV (83.0-100.0) fL MCH (28.0-33.3) pg MCHC (31.6-35.5) g/dL RDW (11.5-14.5) % Plt Count (140-400) K/mcL MPV (9.4-12.4) fL Immature Gran % (0-4) % Seg Neutrophils % % Lymphocytes % % Monocytes % % Eosinophils % % Basophils % % Neutrophils # (1.6-8.9) K/mcL Lymphocytes # (0.6-4.6) K/mcL Monocytes # (0.0-1.3) K/mcL Eosinophils # (0.0-0.6) K/mcL Basophils # (0.0-0.2) K/mcL PT 10.5 (9.4-12.1) Seconds INR 1.0 APTT 27.1 (26.0-36.0) Seconds Sodium (136-145) mEq/L Potassium (3.5-5.1) mEq/L Chloride (98-107) mEq/L Carbon Dioxide (23-29) mEq/L BUN (8-23) mg/dL Creatinine (0.60-1.20) mg/dL Est GFR ( Amer) (> 60) Est GFR (Non-Af Amer) (> 60) BUN/Creatinine Ratio (6-26) Glucose (70-105) mg/dL Calculated Osmolality (280-300) Calcium (8.6-10.3) mg/dL Troponin I (< 0.04) ng/mL - Radiology Data Radiology results reviewed: Yes I reviewed the patient's radiology results. Chest X-Ray 08/11/17 16:23 IMPRESSION: Discoid atelectasis at the right lower lung field. No acute pulmonary disease. Stable cardiomegaly. D/ / Gordon Fermin MD / Gordon Fermin MD Interpreting Provider: Gordon Fermin MD Heart Score - Score History: Moderately Suspicious EKG: Non Specific repolarisation Disturbance Age: Greater than 65 Risk Factors: Equal/Greater than 3 risk factor or history of atherosclerotic disease Troponin: 1-3x normal limit HEART Score Total: 7 Attestation Statement - Attestation Attestation: I examined this patient and my medical decision-making was reviewed with the Resident Physician, Dr. Davis. I agree with the documented findings, disposition and treatment plan as described except to the extent set forth below. Is a 71-year-old white female with history of extensive cardiovascular disease with failed stent placement as well as spelled CABG in the past who was last seen and underwent heart catheterization in March of last year and required transfer to [place] for complicated stent placement. Patient returns tonight because she was awakened from sleep last night at 3 in the morning for substernal chest heaviness and pressure associated with some shortness of breath. Patient was concerned because she also has a history of reflux disease but this felt considerably worse than her typical reflux flareups. Patient was concerned because it felt very similar to prior chest pain that she has experienced associated with her ultimate stent placements. Patient is feeling significantly better at this time but was concerned about prolonged symptoms at home and came in for evaluation. She typically sees Dr. Samson in cardiology. I agree with patient's physical exam findings as documented. EKG shows normal sinus rhythm without acute ischemia. Patient's lab evaluation including repeat troponin was unremarkable chest x-ray is within normal limits. Due to patient's significant cardiovascular history and concerning symptoms will admit her we discussed this with Dr. Samson as well as the hospitalist who accepted patient for admission. Patient remains hemodynamically stable and pain-free at this time.
[2017-08-11 16:53] LABS: Calcium 9.8 mg/dL (8.6-10.3); Potassium 3.5 mEq/L (3.5-5.1)
[2017-08-11] MEDS ORDERED: *HR* Heparin 5,000 UNIT/ML VIAL IVP PRN ×2 (17:35)
[2017-08-11] MEDS ORDERED: *HR* Heparin 5,000 UNIT/ML VIAL IVP ONE (17:35)
--- NOTE | 2017-08-11 17:39 | Event Note ---
Date of Encounter: 08/11/17 Time of Encounter: 17:30 - Cardiology Event Note Called by ED secondary to patient presenting with recurrence in her angina. Recent PCI ostial RCA 03/2017 at [place]. Troponin negative; given suspicion for ACS and no strong contraindication to anticoagulation, recommended heparin drip.
[2017-08-11] MEDS ORDERED: Heparin 25,000 UNIT/500 ML D5W 25,000 UNIT/500 ML BAG IVC SCH (17:45)
--- NOTE | 2017-08-11 18:18 | Internal Med History&Physical ---
Date of Encounter: 08/12/17 Time of Encounter: 18:45 Assessment and Plan (1) Chest pain Current visit: No Status: Acute Rule out acute coronary syndrome - EKG showed no acute ST/Twave changes - Chest x-ray: no acute process - Initial troponin negative Continue heparin drip Cycle cardiac enzymes NPO at midnight Cardiology consulted, recommendations appreciated. Qualifiers: Chest pain type: unspecified Qualified Code(s): R07.9 - Chest pain, unspecified (2) Anemia Current visit: No Status: Acute Qualifiers: Anemia type: other cause Other causes of anemia: other cause, not classified Qualified Code(s): D64.89 - Other specified anemias (3) CAD (coronary artery disease) Current visit: No Status: Chronic Continue Aspirin/Plavix Lipitor Qualifiers: Coronary Disease-Associated Artery/Lesion type: [place] artery [place] vs. 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 Q6H when NPO Qualifiers: Diabetes mellitus type: type 2 Diabetes mellitus complication status: without complication Diabetes mellitus care home insulin use: without care home use Qualified Code(s): E11.9 - Type 2 diabetes mellitus without complications (6) Essential hypertension Current visit: No Status: Chronic metoprolol, hydrochlorothiazide (7) DVT prophylaxis Current visit: No Status: Acute currently on heparin drip Internal Medicine - H&P: HPI History of present illness: Ms. Quintanilla is a 71 year old female with history ofcoronary artery disease, diabetes, hyperlipidemia, hypertension, RA presented for acute onset of chest pain that occurred about 10 hours prior to presentation to ED. Rated 7/10, described as pressure in substernal region with radiate to face. Alleviated with sitting upright. Worsens with laying down. Patient most recent LHC was . Received nitro in ED and had relief of chest pain. She has had similar pain prior to an NH she had in the past. She states she is compliant with medications at home. No fevers/chills, n/v, SOB, palpitations, edema. Past Med Surg Social Fam HX - Past Medical History Medical history: arthritis, asthma, coronary artery disease, diabetes, hyperlipidemia, hypertension, myocardial infarction, RA Psychiatric history: no psych history - Past Surgical History Surgical History: appendectomy, hysterectomy, orthopedic, other, YOANNA/BSO - Social History Smoking Status: Former smoker Smokeless Tobacco Status: No Alcohol use: occasionally Drug use: none - Family History Father Living Status: Hx Family Cardiac Disorders: Yes (NH) Hx Family Respiratory Disorders: No Hx Family Cancer: Yes (Prostate) Hx Family GI Disorders: No Hx Family Endocrine Disorder: No Hx Family Neuromuscular Disorders: No Hx Family Neurologic Disorders: No Hx Family HEENT Disorders: No Hx Family Autoimmune Disorders: No Mother Hx Family Cardiac Disorders: Yes (NH) Hx Family Respiratory Disorders: No Hx Family Cancer: No Hx Family GI Disorders: No Hx Family Endocrine Disorder: Yes (DM) Hx Family Neuromuscular Disorders: No Hx Family Neurologic Disorders: No Hx Family HEENT Disorders: No Hx Family Autoimmune Disorders: No Internal Medicine - H&P: Meds Atorvastatin [Lipitor] 80 mg PO HS 10/07/15 [History] Multivitamin [Multivitamins] 1 tab PO DAILY 10/07/15 [History] hydroCHLOROthiazide [Hydrochlorothiazide] 25 mg PO DAILY 10/07/15 [History] Aspirin [Adult Low Dose Aspirin EC] 81 mg PO DAILY 10/12/15 [History] Clopidogrel [Plavix] 75 mg PO DAILY 10/12/15 [History] Cyanocobalamin (Vitamin B-12) [Vitamin B12] 500 mcg PO DAILY 04/23/16 [History] Cholecalciferol (D-3) [Vitamin D] 2,000 unit PO DAILY 09/12/16 [History] Metoprolol [Lopressor] 25 mg PO BID 09/12/16 [History] Albuterol Sulfate [Albuterol Inhaler] 0 puff IH Q4HR 04/24/17 [History] Nitroglycerin [Nitrostat] 0.4 mg SL Q3-5MIN PRN 04/24/17 [History] Ranitidine HCl [Acid Oil Spreader Operator] 150 mg PO BID 04/24/17 [History] 3 Allergy/AdvReac Type Severity Reaction Status Date / Time Amoxicillin Allergy See Verified 02/24/17 14:56 Comments cephalexin [From Keflex] Allergy See Verified 02/24/17 14:56 Comments isosorbide [From Imdur] Allergy See Verified 02/24/17 14:56 Comments shellfish derived Allergy Hives Verified 02/24/17 14:56 All Systems PM: A 10-system review of systems was performed and is negative for pertinent findings except as documented above in the HPI. - Constitutional Vitals: Temp Pulse Resp BP Pulse Ox 99.6 F 78 18 144/78 98 08/11/17 16:15 08/11/17 16:15 08/11/17 16:15 08/11/17 16:15 08/11/17 16:25 Internal Med - H&P Results - Labs CBC & Chem 7: 08/12/17 01:29 08/12/17 01:29 Labs: Short CBC 08/11/17 Range/Units 16:21 WBC 9.1 (4.3-11.1) K/mcL Hgb 13.4 (11.5-15.4) g/dL Hct 40.5 (35.3-44.9) % Plt Count 226 (140-400) K/mcL Neutrophils # 5.4 (1.6-8.9) K/mcL BMP 08/11/17 16:21 Sodium 136 Potassium 3.5 Chloride 98 Carbon Dioxide 28 BUN 24 H Creatinine 1.15 Glucose 114 H Calcium 9.8 Cardiac Enzymes 08/11/17 Range/Units 16:21 Troponin I 0.03 (< 0.04) ng/mL - Impressions ITS Impressions Chest X-Ray 08/11/17 16:23 IMPRESSION: Discoid atelectasis at the right lower lung field. No acute pulmonary disease. Stable cardiomegaly. D/ / Gordon Fermin MD / Gordon Fermin MD Interpreting Provider: Gordon Fermin MD
[2017-08-11 19:03] LABS: Prothrombin Time 10.5 Seconds (9.4-12.1)
[2017-08-11 19:06] LABS: Activated Partial Thrombo Time 27.1 Seconds (26.0-36.0)
[2017-08-11] MEDS ORDERED: Naloxone 0.4 MG/ML INJ IVP PRN (19:33)
[2017-08-12 02:08] LABS: Basophils % 0.4 %; Eosinophils # 0.2 K/mcL (0.0-0.6); Eosinophils % 1.7 %; Hematocrit 38.2 % (35.3-44.9); Hemoglobin 12.5 g/dL (11.5-15.4); Immature Granulocytes % 0.8 % (0-4); Lymphocytes # 2.9 K/mcL (0.6-4.6); Lymphocytes % 31.8 %; Mean Corpuscular HGB Conc 32.7 g/dL (31.6-35.5); Mean Corpuscular Hemoglobin 29.1 pg (28.0-33.3); Mean Platelet Volume 11.3 fL (9.4-12.4); Monocytes % 11.3 %; Neutrophils # 4.9 K/mcL (1.6-8.9); Platelet Count 210 K/mcL (140-400); Red Blood Count 4.29 M/mcL (3.82-4.97); Red Cell Distribution Width 13.6 % (11.5-14.5)
[2017-08-12 02:25] LABS: Calcium 9.4 mg/dL (8.6-10.3); Potassium 3.2 mEq/L (3.5-5.1)
[2017-08-12 05:26] LABS: Activated Partial Thrombo Time 156.7 Seconds (26.0-36.0)
[2017-08-12 05:33] LABS: Heparin anti-factor XA UFH 0.87 IU/mL (0.30-0.70)
[2017-08-12] MEDS ORDERED: Nitroglycerin 0.4 MG TAB.SUBL SL PRN (07:14)
[2017-08-12] MEDS ORDERED: *HR* Dextrose 50 % in Water (Syg) 50 ML SYRINGE IVP PRN (07:31)
[2017-08-12] MEDS ORDERED: Dextrose Gel 15 GM/37.5 ML TUBE PO PRN ×2 (07:31)
[2017-08-12] MEDS ORDERED: D5% in Water 1,000 ML IVC PRN (07:31)
[2017-08-12] MEDS ORDERED: Potassium Chloride 40 MEQ, Lidocaine 1% 2 ML in D5% in Water 500 ML IVPB ONE (08:09)
[2017-08-12] MEDS ORDERED: 0.9 % Sodium Chloride 1,000 ML IVC SCH (08:15)
[2017-08-12] MEDS ORDERED: Ranolazine 500 MG TAB.ER.12H PO SCH (09:00)
[2017-08-12] MEDS ORDERED: (Fluticasone/Vilanterol [Breo Ellipta 100-25 Mcg Inh] IH SCH (09:00)
--- NOTE | 2017-08-12 09:27 | Cardiology Consult Note ---
<Ryan Stout - Last Filed: 08/12/17 11:45> Date of Encounter: 08/12/17 Time of Encounter: 09:30 Assessment and Plan (1) Chest pain Current Visit: No Status: Resolved Troponin 0.03, 0.04, 0.03, not diagnostic of acute ACS. Check TTE. Last [facility] reviewed. S/p PCI to the ostial, proximal, mid RCA at [facility] 05/2017. SVG to PDA was occluded. FISHER -LAD with competitive flow. MLAD with 50-60% stenosis remaining per [facility] completed here. I discuss proceeding with stress test verses medical management. She prefers medical management at this time. Reports intolerance to imdur. Increase ranexa to 1000 mg BID. Continue asa, plavix, statin, and bb. Check TTE. Qualifiers: Chest pain type: precordial pain Qualified Code(s): R07.2 - Precordial pain (2) CAD (coronary artery disease) Current Visit: No Status: Chronic H/o 2V CABG. Last C showed EF 40-45%. 1/2 patent bypass grafts. The SVG to PDA was occluded. The FISHER-LAD patent with competitive flow. 50-60% ostial stenosis in the Proximal LAD. 20% stenosis in the 1st Marginal. 20% stenosis in the Ramus. 90% ostial in-stent stenosis in the Proximal RCA. Troponin 0.03, 0.04, 0.03- not diagnostic of acute ACS. Continue asa, statin, and bb. Qualifiers: Coronary Disease-Associated Artery/Lesion type: [place] artery [place] vs. transplanted heart: [place] heart Associated angina: with stable angina Qualified Code(s): I25.118 - Atherosclerotic heart disease of [place] coronary artery with other forms of angina pectoris Discussion w patient/family: The assessment and plan as outlined above was discussed with the patient and/or family members who expressed understanding and agreement. All questions were answered. Thank you for involving us in the care of your patient. Please call with any questions. History of Present Illness Consult date: 08/12/17 Requesting physician: Marybeth Powers Consult reason: Chest pain Chief complaint: Chest pain History of present illness: Ms. Quintanilla is a 71 year old female with a past medical history of 2V CABG and multiple PCI, HTN, DM type II, and rheumatoid arthritis. She presented with the c/o midsternal chest pain radiating up her chest. She c/o heart burn symptoms for the past week. She took one SL NTG at home with some relief. SHe in now pain free. Denies SOB or palpitations. Cardiology consulted for further evaluation. Previous cardiac testing: TTE 10/05/15: LVEF 60%, mild diastolic dysfunction, normal RV size and function, mild-moderate (mean gradient 23 mmHg), mild MR, normal RVSP Limited TTE 10/13/15: LVEF 60%, mild basal-mid inferior hypokinesis. C 10/08/15: NABEEL to 99% ostial RCA stenosis [facility] 01/16/16: high grade ISR of ostial RCA stent, 50% ostial LAD stenosis, underwent complex PCI of ostial RCA with NABEEL. [facility] 04/23/16: 99% ISR of ostial RCA. patient was transferred to [facility] CABG 04/30/16 at [facility]: FISHER to LAD, SVG to PDA Intraoperative [facility] 04/30/16: mild , mild-moderate MR (ischemic), LVEF 55-60% ( mild hypokinesis of basal inferior wall), normal RV size and function, severe atheromatous disease throughout the aorta. TTE 09/12/16: LVEF 60%, normal RV, normal RVSP, no significant valvular dysfunction Regadenoson nuclear stress 09/13/16: LVEF > 70%, mild reversible ischemia in the distal inferolateral wall. H/o CABG. Last LHC showed EF 40-45%. 1/2 patent bypass grafts. The SVG to PDA was occluded. The FISHER-LAD patent with competitive flow. 50-60% ostial stenosis in the Proximal LAD. 20% stenosis in the 1st Marginal. 20% stenosis in the Ramus. 90% ostial in-stent stenosis in the Proximal RCA. Reports she was transferred to [place] and underwent PCI to her ostial, mid, and prox RCA. Past Med Surg Social Fam HX - Past Medical History Medical history: arthritis, asthma, coronary artery disease, diabetes, hyperlipidemia, hypertension, myocardial infarction, RA Psychiatric history: no psych history - Past Surgical History Surgical History: appendectomy, hysterectomy, orthopedic, other, YOANNA/BSO - Social History Smoking Status: Former smoker Smokeless Tobacco Status: No Alcohol use: occasionally Drug use: none - Family History Father Living Status: Hx Family Cardiac Disorders: Yes (NH) Hx Family Respiratory Disorders: No Hx Family Cancer: Yes (Prostate) Hx Family GI Disorders: No Hx Family Endocrine Disorder: No Hx Family Neuromuscular Disorders: No Hx Family Neurologic Disorders: No Hx Family HEENT Disorders: No Hx Family Autoimmune Disorders: No Mother Hx Family Cardiac Disorders: Yes (NH) Hx Family Respiratory Disorders: No Hx Family Cancer: No Hx Family GI Disorders: No Hx Family Endocrine Disorder: Yes (DM) Hx Family Neuromuscular Disorders: No Hx Family Neurologic Disorders: No Hx Family HEENT Disorders: No Hx Family Autoimmune Disorders: No Medications and Allergies Atorvastatin [Lipitor] 80 mg PO HS 10/07/15 [History] Multivitamin [Multivitamins] 1 tab PO DAILY 10/07/15 [History] hydroCHLOROthiazide [Hydrochlorothiazide] 25 mg PO DAILY 10/07/15 [History] Aspirin [Adult Low Dose Aspirin EC] 81 mg PO DAILY 10/12/15 [History] Clopidogrel [Plavix] 75 mg PO DAILY 10/12/15 [History] Cyanocobalamin (Vitamin B-12) [Vitamin B12] 500 mcg PO DAILY 04/23/16 [History] Cholecalciferol (D-3) [Vitamin D] 2,000 unit PO DAILY 09/12/16 [History] Metoprolol [Lopressor] 25 mg PO BID 09/12/16 [History] Albuterol Sulfate [Albuterol Inhaler] 0 puff IH Q4HR 04/24/17 [History] Nitroglycerin [Nitrostat] 0.4 mg SL Q3-5MIN PRN 04/24/17 [History] Ranitidine HCl [Acid Manual Writer] 150 mg PO BID 04/24/17 [History] 3 Allergy/AdvReac Type Severity Reaction Status Date / Time Amoxicillin Allergy See Verified 02/24/17 14:56 Comments cephalexin [From Keflex] Allergy See Verified 02/24/17 14:56 Comments isosorbide [From Imdur] Allergy See Verified 02/24/17 14:56 Comments shellfish derived Allergy Hives Verified 02/24/17 14:56 All Systems Review: A 10-system review of systems was performed and is negative for pertinent findings except as documented above in the HPI. Physical Examination Vital Signs, Last 4 Hours Temp Pulse Resp BP Pulse Ox 08/12/17 08:17 16 96 08/12/17 07:06 98.0 F 78 12 106/65 97 General: Conversant, No Apparent Distress HEENT: Atraumatic, Normocephaly, Mucus Membranes Moist Neck: No JVD, Normal carotid pulses Cardiac: Reg Rate and Rhythm, Normal S1 and S2, Other (2/6 systolic murmur.) Lungs: Normal Breath Sounds, No Wheeze, Rales, Rhonchi Neuro: Alert and responsive, No focal deficits noted Abdomen: Soft, Non-Tender Skin: No rashes noted on visualized skin Musculoskeletal: No Chest Wall Tenderness Extremities: No Clubbing, No Cyanosis, No Edema, Normal Pulses Results 08/12/17 01:29 08/12/17 01:29 Lab Results 08/11/17 08/12/17 08/12/17 22:08 01:29 01:29 WBC 9.0 Hgb 12.5 Hct 38.2 Plt Count 210 APTT Sodium Potassium Chloride Carbon Dioxide BUN Creatinine Glucose Calcium Troponin I 0.04 H* 0.03 08/12/17 08/12/17 01:29 04:35 WBC Hgb Hct Plt Count APTT 156.7 H* D Sodium 137 Potassium 3.2 L Chloride 99 Carbon Dioxide 31 H BUN 26 H Creatinine 1.26 H Glucose 111 H Calcium 9.4 Troponin I - Imaging and Cardiology Echo: pending - EKG Interpretation EKG results cardiology: personally reviewed Consult Discharge Plan - Plan Referrals: Brigitte Kirkpatrick MD [Primary Care Provider] - <PemaNaa - Last Filed: 08/12/17 17:36> Date of Encounter: 08/12/17 - Attending Attestation I examined this patient and my medical decision-making was reviewed with the PRIVATE EQUITY ANALYST. I agree with the documented findings, disposition and treatment plan as described. Ms. Quintanilla presented with atypical chest discomfort associated with GERD type symptoms. Symptoms have since resolved - patient feeling much better. Vital signs reviewed - low grade temp on admit, normal since. Labs reviewed - Troponins flat and unremarkable, not indicative of ACS. Recommend doing a limited echo for re-evaluation of LV systolic function. Otherwise, suggested a stress test but patient declined. Suspect symptoms are largely related to GI etiology - recommended patient add a PPI. Consider outpatient GI evaluation. Continue ASA/plavix for recent PCI. On statin, BB. Assessment and Plan Discussion w patient/family: The assessment and plan as outlined above was discussed with the patient and/or family members who expressed understanding and agreement. All questions were answered. Thank you for involving us in the care of your patient. Please call with any questions. History of Present Illness History of present illness: Ms. Quintanilla is a 71 year old female All Systems Review: A 10-system review of systems was performed and is negative for pertinent findings except as documented above in the HPI. Physical Examination Vital Signs, Last 4 Hours Temp Pulse Resp BP Pulse Ox 08/12/17 15:20 97.7 F 75 14 103/56 95 Results 08/12/17 01:29 08/12/17 01:29 Lab Results 08/11/17 08/12/17 08/12/17 22:08 01:29 01:29 WBC 9.0 Hgb 12.5 Hct 38.2 Plt Count 210 APTT Sodium Potassium Chloride Carbon Dioxide BUN Creatinine Glucose Calcium Troponin I 0.04 H* 0.03 08/12/17 08/12/17 01:29 04:35 WBC Hgb Hct Plt Count APTT 156.7 H* D Sodium 137 Potassium 3.2 L Chloride 99 Carbon Dioxide 31 H BUN 26 H Creatinine 1.26 H Glucose 111 H Calcium 9.4 Troponin I
[2017-08-12] MEDS: Multivit/Ca/Min/Fe/FA 1 TAB TABLET PO SCH (10:05)
[2017-08-12] MEDS: Famotidine 20 MG TABLET PO SCH ×2 (10:05→21:26)
[2017-08-12] MEDS: Cyanocobalamin (B-12) 1,000 MCG TABLET PO SCH (10:05)
[2017-08-12] MEDS: hydroCHLOROthiazide 25 MG TABLET PO SCH (10:05)
[2017-08-12] MEDS: Aspirin Enteric Coated 81 MG Tablet PO SCH (10:06)
[2017-08-12] MEDS: Cholecalciferol (D-3) 1,000 UNIT TABLET PO SCH (10:06)
[2017-08-12] MEDS: Insulin LISPRO 300 UNITS/3 ML VIAL SQ SCH ×3 (10:29→17:36)
--- NOTE | 2017-08-12 12:15 | Internal Med Progress Note ---
Date of Encounter: 08/12/17 Time of Encounter: 11:55 - Assessment and plan (1) Chest pain Current Visit: No Status: Acute Assessment and plan: Resolved at this time cardiology evaluation appreciated d/kenzie heparin gtt medical management recommended starting Ranexa today awaiting 2D echo tentative d/c in am Qualifiers: Chest pain type: unspecified Qualified Code(s): R07.9 - Chest pain, unspecified (2) CAD (coronary artery disease) Current Visit: No Status: Chronic Assessment and plan: continue home meds Qualifiers: Coronary Disease-Associated Artery/Lesion type: [place] artery [place] vs. 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 resting in bed and reports of complete resolution of chest pain at this time. cardiology evaluation noted, pt wishes to continue medical management at this time awaiting 2D echo tentative d/c in am - Constitutional Vitals: Temp Pulse Resp BP Pulse Ox 98.0 F 78 16 106/65 96 08/12/17 07:06 08/12/17 07:06 08/12/17 08:17 08/12/17 07:06 08/12/17 08:17 General appearance: Present: cooperative, A&O X 3, pleasant, no acute distress, obese, answers questions appropriately - Head Head exam: Present: atraumatic, normocephalic - Eye Eye exam: Present: conjuntiva pink, sclera anicteric - Respiratory Respiratory exam: Present: CTAB. Absent: accessory muscle use, rales, rhonchi, wheezes - Cardiovascular Cardiovascular exam: Present: RRR, +S1, +S2. Absent: diastolic murmur, gallop, rubs, systolic murmur - GI/Abdominal GI/Abdominal exam: Present: normal bowel sounds, soft, no peritoneal signs. Absent: distended, tenderness - Extremities Exam Extremities exam: Present: warm, radial pulses palpable and symmetrical. Absent : calf tenderness, pedal edema - Neurological Exam Neurological exam: Present: alert, oriented X3 - Psychiatric Psychiatric exam: Present: normal affect, normal mood Internal Medicine: Result - Labs CBC & Chem 7: 08/12/17 01:29 08/12/17 01:29 Labs: Short CBC 08/12/17 Range/Units 01:29 WBC 9.0 (4.3-11.1) K/mcL Hgb 12.5 (11.5-15.4) g/dL Hct 38.2 (35.3-44.9) % Plt Count 210 (140-400) K/mcL Neutrophils # 4.9 (1.6-8.9) K/mcL BMP 08/12/17 01:29 Sodium 137 Potassium 3.2 L Chloride 99 Carbon Dioxide 31 H BUN 26 H Creatinine 1.26 H Glucose 111 H Calcium 9.4 Cardiac Enzymes 08/11/17 08/12/17 Range/Units 22:08 01:29 Troponin I 0.04 H* 0.03 (< 0.04) ng/mL - ABG Interpretation ABG results: PT/INR, D-dimer PT 10.5 Seconds (9.4-12.1) 08/11/17 16:21 Consult Discharge Plan - Plan Referrals: Brigitte Kirkpatrick MD [Primary Care Provider] - Prescriptions: Ranolazine [Ranexa] 500 mg PO BID #60 tab.er.12h
[2017-08-12] MEDS: Budesonide/Formoterol 80/4.5 MDI IH SCH ×2 (15:52→20:42)
[2017-08-12] MEDS: *HR* Heparin 5,000 UNIT/ML VIAL SQ SCH (17:33)
--- NOTE | 2017-08-12 17:42 | Electrocardiograph Report ---
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
[2017-08-12] MEDS ORDERED: Insulin LISPRO 300 UNITS/3 ML VIAL SQ SCH (21:00)
[2017-08-12] MEDS: Ranolazine 500 MG TAB.ER.12H PO SCH (21:27)
[2017-08-13] MEDS: *HR* Heparin 5,000 UNIT/ML VIAL SQ SCH (05:38)
[2017-08-13 06:46] LABS: Basophils # 0.1 K/mcL (0.0-0.2); Basophils % 0.7 %; Eosinophils # 0.1 K/mcL (0.0-0.6); Eosinophils % 1.6 %; Hematocrit 40.9 % (35.3-44.9); Hemoglobin 13.4 g/dL (11.5-15.4); Immature Granulocytes % 0.5 % (0-4); Lymphocytes % 26.4 %; Mean Corpuscular HGB Conc 32.8 g/dL (31.6-35.5); Mean Corpuscular Hemoglobin 29.1 pg (28.0-33.3); Mean Corpuscular Volume 88.9 fL (83.0-100.0); Mean Platelet Volume 10.9 fL (9.4-12.4); Monocytes # 0.8 K/mcL (0.0-1.3); Neutrophils # 4.5 K/mcL (1.6-8.9); Platelet Count 208 K/mcL (140-400); Red Cell Distribution Width 13.9 % (11.5-14.5); Segmented Neutrophils % 59.8 %
[2017-08-13 07:02] LABS: BUN/Creatinine Ratio 19 (6-26); Blood Urea Nitrogen 19 mg/dL (8-23); Calcium 9.8 mg/dL (8.6-10.3); Carbon Dioxide 24 mEq/L (23-29); Chloride 102 mEq/L (98-107); Glucose 129 mg/dL (70-105); Magnesium 1.8 mg/dL (1.6-2.6); Osmolality,Calculated 286 (280-300); Phosphorous 3.5 mg/dL (2.7-4.5); Potassium 4.1 mEq/L (3.5-5.1); Sodium 136 mEq/L (136-145); eGFR For African Americans > 60 (> 60); eGFR For Non-African Americans 54 (> 60)
[2017-08-13 07:10] VITALS: BP 118/74
[2017-08-13] MEDS: Cholecalciferol (D-3) 1,000 UNIT TABLET PO SCH (10:14)
[2017-08-13] MEDS: Cyanocobalamin (B-12) 1,000 MCG TABLET PO SCH (10:14)
[2017-08-13] MEDS: Aspirin Enteric Coated 81 MG Tablet PO SCH (10:15)
[2017-08-13] MEDS: Famotidine 20 MG TABLET PO SCH (10:15)
[2017-08-13] MEDS: Ranolazine 500 MG TAB.ER.12H PO SCH (10:15)
[2017-08-13] MEDS: Multivit/Ca/Min/Fe/FA 1 TAB TABLET PO SCH (10:15)
[2017-08-13] MEDS: hydroCHLOROthiazide 25 MG TABLET PO SCH (10:15)
--- NOTE | 2017-08-13 11:19 | Discharge Summary ---
Date of Encounter: 08/13/17 Time of Encounter: 10:36 - Discharge Diagnosis (1) Chest pain Priority: Primary Status: Resolved Qualifiers: Chest pain type: unspecified Qualified Code(s): R07.9 - Chest pain, unspecified (2) CAD (coronary artery disease) Priority: Secondary Status: Chronic Qualifiers: Coronary Disease-Associated Artery/Lesion type: [place] artery [place] vs. 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 Ranolazine [Ranexa] 1,000 mg PO BID #60 tab.er.12h Home Medications: Atorvastatin [Lipitor] 80 mg PO HS 10/07/15 [History] Multivitamin [Multivitamins] 1 tab PO DAILY 10/07/15 [History] hydroCHLOROthiazide [Hydrochlorothiazide] 25 mg PO DAILY 10/07/15 [History] Aspirin [Adult Low Dose Aspirin EC] 81 mg PO DAILY 10/12/15 [History] Clopidogrel [Plavix] 75 mg PO DAILY 10/12/15 [History] Cyanocobalamin (Vitamin B-12) [Vitamin B12] 500 mcg PO DAILY 04/23/16 [History] Cholecalciferol (D-3) [Vitamin D] 2,000 unit PO DAILY 09/12/16 [History] Metoprolol [Lopressor] 25 mg PO BID 09/12/16 [History] Albuterol Sulfate [Albuterol Inhaler] 0 puff IH Q4HR 04/24/17 [History] Nitroglycerin [Nitrostat] 0.4 mg SL Q3-5MIN PRN 04/24/17 [History] Ranitidine HCl [Acid Sales Representative [employer]ing [employer]] 150 mg PO BID 04/24/17 [History] Omeprazole [PriLOSEC] 40 mg PO DAILY@0630 #30 capsule. 08/13/17 [Rx] Ranolazine [Ranexa] 1,000 mg PO BID #60 tab.er.12h 08/13/17 [Rx] Allergies/Adverse Reactions: 3 Allergy/AdvReac Type Severity Reaction Status Date / Time Amoxicillin Allergy See Verified 02/24/17 14:56 Comments cephalexin [From Keflex] Allergy See Verified 02/24/17 14:56 Comments isosorbide [From Imdur] Allergy See Verified 02/24/17 14:56 Comments shellfish derived Allergy Hives Verified 02/24/17 14:56 Procedures/tests Complete & Pending: Procedures Performed prior 72 hours Category Date Time Status EKG [ECG 12 lead ECG] [ECG] Stat Y 08/12/17 12:21 Completed EV echocardiogram Routine Y 08/12/17 11:46 Completed Date of admission: 08/11/17 18:30 Primary care physician: Brigitte Kirkpatrick, Consults: Cardiology: Dr. Mcadams Discharging clinician: Scarlet Robles Anticipated date of discharge: 08/13/17 - Patient Status Disposition: Home, Self-Care Condition: Good Functional capacity at discharge: independent ambulation Overall status at discharge: patient is back to baseline - Discharge Instructions Follow Up With: Brigitte Kirkpatrick MD [Primary Care Provider] - Additional Instructions: Please follow up with your primary care physician within five days after your discharge from the hospital. Please follow up with cardiology within one to two weeks after your discharge from the hospital Ranexa 1000mg twice a day has been added to your home medications Omeprazole 40mg once a day has been added to your home medications. Ask your primary care physician about terminal gauger supervisor continuation of omeprazole and if symptoms of heart burn persist, ask for a gastroenterology referral. Resume all other medications as prescribed by your primary care physician. - Diet and Activity Activity: resume usual activities as tolerated Diet: low fat, low cholesterol, low salt diet Hospital course: Ms. Quintanilla is a 71 year old female with PMH of HTN, HLD, CAD, obesity who was admitted for atypical chest pain. Cardiology evaluated the patient, Ranexa was added and stress test was offered to the patient. Pt refused stress testing but agreed with medical management. At this time pt reports of complete resolution of her pain. PPI was added as there was a concern for her atypical pain consistent with GERD symptoms. Pt is currently medically stable and will be discharged to home with outpatient follow up with pcp and cardiology. - Time Spent with Patient Total time spent providing and/or coordinating discharge services: Less than 30 minutes - Constitutional Vitals: Temp Pulse Resp BP Pulse Ox 97.6 F 76 16 118/74 95 08/13/17 07:00 08/13/17 07:00 08/13/17 07:00 08/13/17 07:00 08/13/17 07:00 General appearance: Present: cooperative, A&O X 3, pleasant, no acute distress, obese, answers questions appropriately - Head Head exam: Present: atraumatic, normocephalic - Eye Eye exam: Present: conjuntiva pink, sclera anicteric - Respiratory Respiratory exam: Present: CTAB. Absent: accessory muscle use, rales, rhonchi, wheezes - Cardiovascular Cardiovascular exam: Present: RRR, +S1, +S2. Absent: diastolic murmur, gallop, rubs, systolic murmur - GI/Abdominal GI/Abdominal exam: Present: normal bowel sounds, soft, no peritoneal signs. Absent: distended, tenderness - Extremities Exam Extremities exam: Present: warm, radial pulses palpable and symmetrical. Absent : calf tenderness, pedal edema - Neurological Exam Neurological exam: Present: alert, oriented X3
--- NOTE | 2017-08-13 14:16 | Cardiology Progress Note ---
Date of Encounter: 08/13/17 Time of Encounter: 11:00 Assessment and Plan (1) Chest pain Status: Resolved Troponin 0.03, 0.04, 0.03, not diagnostic of acute ACS. KG shows SR with non- specific ST changes. No change from previous EKG. Last [facility] reviewed. S/p PCI to the ostial, proximal, mid RCA at [facility] 05/2017. SVG to PDA was occluded. FISHER -LAD with competitive flow. MLAD with 50-60% stenosis remaining per [facility] completed here. I discuss proceeding with stress test verses medical management. She prefers medical management at this time. Reports intolerance to imdur. Increase ranexa to 1000 mg BID. Continue asa, plavix, statin, and bb. TTE completed shows EF 60%. Basal inferior wall is hypokenetic. EF improved from previous evaluation here on [facility] EF 40-45%. No TTE done at that time. Patient had PCI to her RCA at that time. Denies recurrent chest pain since admission. Agrees with continued medical management. Out-pt f/u in 2 weeks will be coordinated. Call with questions. Qualifiers: Chest pain type: precordial pain Qualified Code(s): R07.2 - Precordial pain (2) CAD (coronary artery disease) Status: Chronic H/o 2V CABG. Last [facility] showed EF 40-45%. 1/2 patent bypass grafts. The SVG to PDA was occluded. The FISHER-LAD patent with competitive flow. 50-60% ostial stenosis in the Proximal LAD. 20% stenosis in the 1st Marginal. 20% stenosis in the Ramus. 90% ostial in-stent stenosis in the Proximal RCA. Troponin 0.03, 0.04, 0.03- not diagnostic of acute ACS. Continue asa, statin, and bb. Qualifiers: Coronary Disease-Associated Artery/Lesion type: [place] artery [place] vs. transplanted heart: [place] heart Associated angina: with stable angina Qualified Code(s): I25.118 - Atherosclerotic heart disease of [place] coronary artery with other forms of angina pectoris Discussion w patient/family: The assessment and plan as outlined above was discussed with the patient and/or family members who expressed understanding and agreement. All questions were answered. Thank you for involving us in the care of your patient. Please call with any questions. Subjective Principal diagnosis: Chest pain Interval history: Denies recurrent chest pain since admission. Objective Vital Signs Temp Pulse Resp BP Pulse Ox 08/13/17 07:00 97.6 F 76 16 118/74 95 08/13/17 03:29 98.0 F 75 16 113/66 95 08/12/17 23:47 97.8 F 76 16 108/63 95 08/12/17 19:36 97.6 F 71 16 119/69 96 08/12/17 15:20 97.7 F 75 14 103/56 95 Intake and Output 08/12/17 08/13/17 08/13/17 23:59 07:59 15:59 Intake Total 0 / 0 0 / 0 Balance 0 / 0 0 / 0 Intake: Oral 0 / 0 0 / 0 Other: Weight 77.167 kg Blood Glucose* 102 112 103 Patient Weight 08/13/17 23:59 Weight 77.167 kg General: Conversant, No Apparent Distress HEENT: Atraumatic, Normocephaly, Mucus Membranes Moist Neck: No JVD, Normal carotid pulses Cardiac: Reg Rate and Rhythm, Normal S1 and S2, No Murmur Lungs: Normal Breath Sounds, No Wheeze, Rales, Rhonchi Neuro: Alert and responsive, No focal deficits noted Abdomen: Soft, Non-Tender Skin: No rashes noted on visualized skin Musculoskeletal: No Chest Wall Tenderness Extremities: No Clubbing, No Cyanosis, No Edema, Normal Pulses Results 08/13/17 06:29 08/13/17 06:29 Lab Results 08/13/17 08/13/17 06:29 06:29 WBC 7.6 Hgb 13.4 Hct 40.9 Plt Count 208 Sodium 136 Potassium 4.1 Chloride 102 Carbon Dioxide 24 BUN 19 Creatinine 1.01 Glucose 129 H Calcium 9.8 Magnesium 1.8 - Imaging and Cardiology Echo: report reviewed - EKG Interpretation EKG results cardiology: personally reviewed Consult Discharge Plan - Plan Additional Instructions: Please follow up with your primary care physician within five days after your discharge from the hospital. Please follow up with cardiology within one to two weeks after your discharge from the hospital Ranexa 1000mg twice a day has been added to your home medications Omeprazole 40mg once a day has been added to your home medications. Ask your primary care physician about intermediate continuation of omeprazole and if symptoms of heart burn persist, ask for a gastroenterology referral. Resume all other medications as prescribed by your primary care physician. Referrals: Brigitte Kirkpatrick MD [Primary Care Provider] - 08/20/17 9:00 am (Please follow up as schedule..) Prescriptions: Omeprazole [PriLOSEC] 40 mg PO DAILY@629 #30 capsule. Ranolazine [Ranexa] 1,000 mg PO BID #60 tab.er.12h
--- NOTE | 2017-08-13 18:41 | Electrocardiograph Report ---
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
== END 2017-08-13 14:09 | disposition home or self-care (01) ==
LOC: 2ANU 16:02 → EMEROO 16:02 → 2ANU 19:47
PROVIDERS: ADMIT Internal Medicine; ATTEND Internal Medicine

== ENCOUNTER 2018-12-10 09:56 | Observation (INO) ==
--- NOTE | 2018-12-10 10:25 | Emergency Department Note ---
Disposition Clinical Impression: Chest pain of uncertain etiology Disposition: Admitted As Inpatient Condition: Fair Referrals: Brigitte Kirkpatrick MD [Primary Care Provider] - Forms: ED Satisfaction Letter Time of Disposition: 11:51 Chest Pain HPI - General Chief Complaint: ED Chest Pain Stated Complaint: chest pain Time Seen by Provider: 12/10/18 09:58 Source: patient, EMS - History of Present Illness HPI Narrative: 73-year-old female presents to the emergency room with complaints of chest pain, shortness of breath. The patient states is something ongoing for last 2 or 3 days. Patient does have a history of coronary artery disease. The patient states that this does not exactly replicate the way she felt with previous heart events. The patient states that she does have some pressure to the central portion of the chest. The patient states that she did receive nitroglycerin and a baby aspirin prior to arrival, the nitroglycerin did help her symptoms. Patient states the pain does not radiate anywhere, does not go to her back. The patient denies any abdominal pain. The patient denies any or GI complaints. She has not had nausea vomiting. She has had some sweatiness at nighttime which is unusual for her. She does complain of a chronic cough. The patient denies any significant leg pain or swelling. The patient denies any focal weakness or numbness. The patient feels worse if she lays flat. Patient states also she is short of breath with exertion. She denies any leg pain. She currently states the pain levels is a 4 on a 10 scale. Severity scale (1-10): 5 - Related Data Home Medications Medication Instructions Recorded Confirmed Multivitamin [Multivitamins] 1 tab PO DAILY 10/07/15 12/10/18 hydroCHLOROthiazide 25 mg PO DAILY 10/07/15 12/10/18 [Hydrochlorothiazide] Aspirin [Adult Low Dose Aspirin EC] 81 mg PO DAILY 10/12/15 12/10/18 Clopidogrel [Plavix] 75 mg PO DAILY 10/12/15 12/10/18 Cyanocobalamin (Vitamin B-12) 500 mcg PO DAILY 04/23/16 12/10/18 [Vitamin B12] Cholecalciferol (D-3) [Vitamin D] 2,000 unit PO DAILY 09/12/16 12/10/18 Metoprolol [Lopressor] 25 mg PO BID 09/12/16 12/10/18 Albuterol Sulfate [Albuterol 1 puff IH Q6HR 04/24/17 12/10/18 Inhaler] Nitroglycerin [Nitrostat] 0.4 mg SL Q3-5MIN PRN 04/24/17 12/10/18 Ranitidine HCl [Acid Prison Officer] 150 mg PO BID 04/24/17 12/10/18 Folic Acid 800 mcg PO DAILY 03/24/18 12/10/18 Ventolin Hfa 108 mcg AER Q6H PRN 03/24/18 12/10/18 Atorvastatin [Lipitor] 80 mg PO HS 12/10/18 12/10/18 Lisinopril [Zestril] 10 mg PO DAILY 12/10/18 12/10/18 Previous Rx's Medication Instructions Recorded Omeprazole [PriLOSEC] 40 mg PO DAILY@0630 #30 capsule. 08/13/17 Allergies Allergy/AdvReac Type Severity Reaction Status Date / Time Amoxicillin Allergy See Verified 02/24/17 14:56 Comments cephalexin [From Keflex] Allergy See Verified 02/24/17 14:56 Comments isosorbide [From Imdur] Allergy See Verified 02/24/17 14:56 Comments shellfish derived Allergy Hives Verified 02/24/17 14:56 Review of Systems: As mentioned per history of present illness and as follows. Constitutional: Negative for chills or fever HENT: Negative for sore throat. Eyes: Negative for visual disturbance Respiratory: Positive for shortness of breath. Cardiovascular: Negative for palpitations. Gastrointestinal: Negative for abdominal pain Genitourinary: Negative for dysuria Musculoskeletal: Negative for back pain. Skin: Negative for rash. 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 HENT: Normocephalic, Atraumatic, Bilateral external ears normal, Oropharynx moist, No oral exudates, Nose normal. Neck- Normal range of motion, No tenderness, Supple. Eyes: PERRL, EOMI, Conjunctiva normal,. Cardiovascular: Regular rate and rhythm without clicks, rubs, gallops or murmurs. Respiratory: Normal breath sounds, No respiratory distress, No wheezing, rhonchi, or crackles. GI: Soft, nontender, no evidence of guarding or peritoneal signs. Bowel sounds are active. Musculoskeletal: Good range of motion in all major joints. No tenderness to palpation or major deformities noted. +5/5 strength noted to all extremities. Integument: Warm, Dry, No erythema, No rash. No edema. Neurologic: Alert & oriented x 3, Normal sensory function, No focal deficits noted. CN II-XII grossly intact. - General General appearance: alert Course Vital Signs Temperature 98.3 F 12/10/18 10:05 Pulse Rate 60 12/10/18 10:05 Respiratory Rate 18 12/10/18 10:05 Blood Pressure 133/65 12/10/18 10:05 O2 Sat by Pulse Oximetry 98 12/10/18 10:05 Temperature 98.3 F 12/10/18 10:05 Pulse Rate 60 12/10/18 10:58 Respiratory Rate 18 12/10/18 10:58 Blood Pressure 123/62 12/10/18 10:58 O2 Sat by Pulse Oximetry 98 12/10/18 10:58 Oxygen Delivery Oxygen Delivery Room Air Chest Pain - MDM Narrative Medical decision making narrative: EKG was obtained that showed evidence of sinus rhythm 61 beats a minute, patient does not have significant ST segment elevation or depression. Patient does have T-wave inversion noted inferiorly. Patient does have flattening noted laterally. VA and QT intervals are within normal limits. Interpreted by myself . Patient does have a negative cardiac workup here in emergency room. The patient is point time did have a negative chest x-ray, negative troponin. The patient this point I am is no evidence of infection, no evidence of heart failure. Do not believe the patient has any evidence of pulmonary embolism. She is not tachycardic or hypoxic here in the emergency room. At this time I do believe the patient needs further cardiac evaluation given her history. Patient will be admitted for further evaluation to the floor. Case was discussed with hospitalist and full detail. Patient was also given aspirin here in the emergency room. Patient will be admitted for further observation. Final impression 1. Chest pain, precordial - Lab Data Result diagrams: 12/10/18 10:06 12/10/18 10:06 Lab Results 12/10/18 12/10/18 12/10/18 Range/Units 10:06 10:06 10:06 WBC 6.4 (4.3-11.1) K/mcL RBC 3.95 (3.82-4.97) M/mcL Hgb 12.3 (11.5-15.4) g/dL Hct 37.7 (35.3-44.9) % MCV 95.4 (83.0-100.0) fL MCH 31.1 (28.0-33.3) pg MCHC 32.6 (31.6-35.5) g/dL RDW 11.9 (11.5-14.5) % Plt Count 190 (140-400) K/mcL MPV 11.1 (9.4-12.4) fL Immature Gran % 0.5 (0-4) % Seg Neutrophils % 59.3 % Lymphocytes % 24.5 % Monocytes % 12.1 % Eosinophils % 3.0 % Basophils % 0.6 % Neutrophils # 3.8 (1.6-8.9) K/mcL Lymphocytes # 1.6 (0.6-4.6) K/mcL Monocytes # 0.8 (0.0-1.3) K/mcL Eosinophils # 0.2 (0.0-0.6) K/mcL Basophils # 0.0 (0.0-0.2) K/mcL PT 11.8 (9.4-12.1) Seconds INR 1.0 Sodium 135 L (136-145) mEq/L Potassium 4.1 (3.5-5.1) mEq/L Chloride 102 (98-107) mEq/L Carbon Dioxide 25 (23-29) mEq/L BUN 23 (8-23) mg/dL Creatinine 1.00 (0.60-1.20) mg/dL Est GFR ( Amer) > 60 (> 60) Est GFR (Non-Af Amer) 54 L (> 60) BUN/Creatinine Ratio 23 (6-26) Glucose 142 H (70-105) mg/dL Calculated Osmolality 286 (280-300) Calcium 9.9 (8.6-10.3) mg/dL Troponin I 0.03 (< 0.04) ng/mL
[2018-12-10 10:34] LABS: Basophils % 0.6 %; Eosinophils # 0.2 K/mcL (0.0-0.6); Hematocrit 37.7 % (35.3-44.9); Hemoglobin 12.3 g/dL (11.5-15.4); Immature Granulocytes % 0.5 % (0-4); Lymphocytes # 1.6 K/mcL (0.6-4.6); Lymphocytes % 24.5 %; Mean Corpuscular HGB Conc 32.6 g/dL (31.6-35.5); Mean Corpuscular Hemoglobin 31.1 pg (28.0-33.3); Mean Corpuscular Volume 95.4 fL (83.0-100.0); Mean Platelet Volume 11.1 fL (9.4-12.4); Monocytes # 0.8 K/mcL (0.0-1.3); Monocytes % 12.1 %; Neutrophils # 3.8 K/mcL (1.6-8.9); Platelet Count 190 K/mcL (140-400); Red Blood Count 3.95 M/mcL (3.82-4.97); Red Cell Distribution Width 11.9 % (11.5-14.5); Segmented Neutrophils % 59.3 %; White Blood Count 6.4 K/mcL (4.3-11.1)
[2018-12-10 10:39] LABS: Prothrombin Time 11.8 Seconds (9.4-12.1)
[2018-12-10 10:55] LABS: BUN/Creatinine Ratio 23 (6-26); Blood Urea Nitrogen 23 mg/dL (8-23); Calcium 9.9 mg/dL (8.6-10.3); Carbon Dioxide 25 mEq/L (23-29); Chloride 102 mEq/L (98-107); Glucose 142 mg/dL (70-105); Osmolality,Calculated 286 (280-300); Potassium 4.1 mEq/L (3.5-5.1); Sodium 135 mEq/L (136-145); Troponin I 0.03 ng/mL (< 0.04); eGFR For African Americans > 60 (> 60); eGFR For Non-African Americans 54 (> 60)
[2018-12-10] MEDS ORDERED: Aspirin 325 MG TABLET PO ONE (10:58)
[2018-12-10] MEDS ORDERED: Ondansetron 4 MG/2 ML VIAL IVP PRN (15:00)
[2018-12-10] MEDS ORDERED: *HR* HYDROcodone/Acet 5/325 mg TABLET PO PRN (15:00)
[2018-12-10] MEDS ORDERED: Acetaminophen 325 MG TABLET PO PRN (15:00)
[2018-12-10] MEDS ORDERED: Naloxone 0.4 MG/ML INJ IVP PRN (15:00)
[2018-12-10] MEDS ORDERED: Nitroglycerin 0.4 MG TAB.SUBL SL PRN (15:02)
--- NOTE | 2018-12-10 15:32 | Internal Med History&Physical ---
Date of Encounter: 12/10/18 Time of Encounter: 15:27 Internal Medicine - H&P: HPI Chief complaint: chest pain Admitted From: Emergency Dept History of present illness: Ms. Quintanilla is a 73 year old female with history of coronary artery disease s/p PCI, s/p CABG, diastolic CHF, mild , diabetes, hyperlipidemia, hypertension and RA presented to ER with intermittent CP,more like pressure located sub sternally, radiating to her b/l jaw. She also feels short of breath. She denied any PND, Orthopnea, however with exertion she feels chest pressure and SOB. She denied any leg edema. She had Echo done in 09/16 showed preserved LVEF, mild diastolic dysfunction and mild only. Pt mentioned she has these symptoms from last one week. In the ER her intial trop @ 0.03 and EKG showed - NSR, T wave inversion in inferior leads, No ST changes noticed. She denied any active CP now. Past Med Surg Social Fam HX - Past Medical History Medical history: arthritis, asthma, CHF, coronary artery disease, diabetes, GERD, hyperlipidemia, hypertension, myocardial infarction, RA Additional medical history: allergies, endometriosis, anemia, mild aortic stenosis Psychiatric history: no psych history - Past Surgical History Surgical History: angioplasty/stent, appendectomy, hysterectomy, orthopedic, oth er, YOANNA/BSO Additional surgical history: ovarian cyst removed, right hand surgery, colposcopy, dental surgery, CTR, eye surgery, - Social History Smoking Status: Never smoker Smokeless Tobacco Status: No Alcohol use: occasionally Drug use: none - Family History Father Living Status: Hx Family Cardiac Disorders: Yes ([place]) Hx Family Respiratory Disorders: No Hx Family Cancer: Yes (Prostate) Hx Family GI Disorders: No Hx Family Endocrine Disorder: No Hx Family Neuromuscular Disorders: No Hx Family Neurologic Disorders: No Hx Family HEENT Disorders: No Hx Family Autoimmune Disorders: No Mother Hx Family Cardiac Disorders: Yes ([place]) Hx Family Respiratory Disorders: No Hx Family Cancer: No Hx Family GI Disorders: No Hx Family Endocrine Disorder: Yes (DM) Hx Family Neuromuscular Disorders: No Hx Family Neurologic Disorders: No Hx Family HEENT Disorders: No Hx Family Autoimmune Disorders: No Internal Medicine - H&P: Meds Multivitamin [Multivitamins] 1 tab PO DAILY 10/07/15 [History] hydroCHLOROthiazide [Hydrochlorothiazide] 25 mg PO DAILY 10/07/15 [History] Aspirin [Adult Low Dose Aspirin EC] 81 mg PO DAILY 10/12/15 [History] Clopidogrel [Plavix] 75 mg PO DAILY 10/12/15 [History] Cyanocobalamin (Vitamin B-12) [Vitamin B12] 500 mcg PO DAILY 04/23/16 [History] Cholecalciferol (D-3) [Vitamin D] 2,000 unit PO DAILY 09/12/16 [History] Metoprolol [Lopressor] 25 mg PO BID 09/12/16 [History] Albuterol Sulfate [Albuterol Inhaler] 1 puff IH Q6HR 04/24/17 [History] Nitroglycerin [Nitrostat] 0.4 mg SL Q3-5MIN PRN 04/24/17 [History] Ranitidine HCl [Acid Sugar Refiner] 150 mg PO BID 04/24/17 [History] Omeprazole [PriLOSEC] 40 mg PO DAILY@0630 #30 capsule. 08/13/17 [Rx] Folic Acid 800 mcg PO DAILY 03/24/18 [History] Ventolin Hfa 108 mcg AER Q6H PRN 03/24/18 [History] Atorvastatin [Lipitor] 80 mg PO HS 12/10/18 [History] Lisinopril [Zestril] 10 mg PO DAILY 12/10/18 [History] Allergy/AdvReac Type Severity Reaction Status Date / Time Amoxicillin Allergy See Verified 02/24/17 14:56 Comments cephalexin [From Keflex] Allergy See Verified 02/24/17 14:56 Comments isosorbide [From Imdur] Allergy See Verified 02/24/17 14:56 Comments shellfish derived Allergy Hives Verified 02/24/17 14:56 All Systems PM: A 10-system review of systems was performed and is negative for pertinent findings except as documented above in the HPI. Review of systems: All the systems are reviewed everything is benign except the systems and symptoms I mentioned in the history of present illness - Constitutional Vitals: Temp Pulse Resp BP Pulse Ox 98.3 F 67 18 117/55 97 12/10/18 10:05 12/10/18 13:35 12/10/18 13:35 12/10/18 13:35 12/10/18 13:35 General appearance: Present: cooperative, A&O X 3, no acute distress, answers questions appropriately Exam: a - Head Head exam: Present: atraumatic, normal inspection - Neck Neck exam general surgery: Present: supple - Respiratory Respiratory exam: Present: decreased breath sounds. Absent: rales, respiratory distress, rhonchi, wheezes - Cardiovascular Cardiovascular exam: Present: RRR, +S1, +S2. Absent: tachycardia - GI/Abdominal GI/Abdominal exam: Present: normal bowel sounds, soft. Absent: rebound, rigid, tenderness - Extremities Exam Extremities exam: Absent: calf tenderness, pedal edema, tenderness - Back Exam Back exam: Absent: CVA tenderness (L), CVA tenderness (R) - Neurological Exam Neurological exam: Present: alert, oriented X3 - Psychiatric Psychiatric exam: Present: normal affect, normal mood Internal Med - H&P Results - Labs CBC & Chem 7: 12/10/18 10:06 12/10/18 10:06 Labs: Short CBC 12/10/18 Range/Units 10:06 WBC 6.4 (4.3-11.1) K/mcL Hgb 12.3 (11.5-15.4) g/dL Hct 37.7 (35.3-44.9) % Plt Count 190 (140-400) K/mcL Neutrophils # 3.8 (1.6-8.9) K/mcL BMP 12/10/18 10:06 Sodium 135 L Potassium 4.1 Chloride 102 Carbon Dioxide 25 BUN 23 Creatinine 1.00 Glucose 142 H Calcium 9.9 Cardiac Enzymes 12/10/18 Range/Units 10:06 Troponin I 0.03 (< 0.04) ng/mL - Impressions ITS Impressions Chest X-Ray 12/10/18 09:59 IMPRESSION: No acute process. D/ / Sunday Prather MD / Sunday Prather MD Interpreting Provider: Sunday Prather MD - Assessment and Plan (1) Chest pain Current Visit: No Status: Resolved Assessment and plan: Will admit the pt into Tele for observation Will place pt on cardiac cath technician check serial troponin so far negative troponin EKG reviewed - NSR, TWI in inferior leads Cont pt on ASA and Nitro PRN for pain Will check FLP in AM Will get stress test in AM since pt is high risk for ACS resumed home meds, ASA, Plavix, Statin, BB and ACEI Will give a call to her regular manager intermediate since has an extensive and complicated cardiac history Qualifiers: Chest pain type: precordial pain Qualified Code(s): R07.2 - Precordial pain (2) CAD (coronary artery disease) Current Visit: No Status: Chronic Assessment and plan: s/p PCI and s/p CABG Resumed home meds - ASA, Plavix, Metoprolol and Lisinopril Qualifiers: Coronary Disease-Associated Artery/Lesion type: [place] artery [place] vs. transplanted heart: [place] heart Associated angina: with stable angina Qualified Code(s): I25.118 - Atherosclerotic heart disease of [place] coronary artery with other forms of angina pectoris (3) Chronic diastolic CHF (congestive heart failure) Current Visit: Yes Status: Acute Assessment and plan: not in exacerbation resumed all home meds (4) Hyperlipidemia Current Visit: Yes Status: Acute Assessment and plan: resumed home med Statin will check FLP in AM Qualifiers: Hyperlipidemia type: unspecified Qualified Code(s): E78.5 - Hyperlipidemia, unspecified (5) GERD (gastroesophageal reflux disease) Current Visit: Yes Status: Acute Assessment and plan: on PPI + Zantac Qualifiers: Esophagitis presence: without esophagitis Qualified Code(s): K21.9 - Gastro-esophageal reflux disease without esophagitis (6) Essential hypertension Current Visit: No Status: Chronic Assessment and plan: stable BP resumed home meds - Time Spent With Patient Total time spent is greater than 50% in coordination of care (as documented) at patient's floor/unit and/or counseling patient:
[2018-12-10] MEDS: Famotidine 20 MG TABLET PO SCH (21:29)
[2018-12-11 02:04] LABS: BUN/Creatinine Ratio 21 (6-26); Blood Urea Nitrogen 23 mg/dL (8-23); Calcium 9.9 mg/dL (8.6-10.3); Carbon Dioxide 25 mEq/L (23-29); Chloride 103 mEq/L (98-107); Chol/HDL Ratio 3.1 (0-4.9); Cholesterol 135 mg/dL (< 200); Glucose 126 mg/dL (70-105); HDL Cholesterol 43 mg/dL (40-59); LDL Cholesterol,Calculated 47 mg/dL (0-99); Osmolality,Calculated 289 (280-300); Potassium 3.9 mEq/L (3.5-5.1); Sodium 137 mEq/L (136-145); Triglycerides 225 mg/dL (< 150); eGFR For African Americans > 60 (> 60); eGFR For Non-African Americans 50 (> 60)
[2018-12-11] MEDS ORDERED: Regadenoson 0.4 MG/5 ML SYRINGE IVP ONE (06:07)
[2018-12-11] MEDS: Cholecalciferol (D-3) 1,000 UNIT TABLET PO SCH (09:21)
[2018-12-11] MEDS: hydroCHLOROthiazide 25 MG TABLET PO SCH (09:22)
[2018-12-11] MEDS: Multivit/Ca/Min/Fe/FA 1 TAB TABLET PO SCH (09:22)
[2018-12-11] MEDS: Folic Acid 1 MG TABLET PO SCH (09:22)
[2018-12-11] MEDS: Famotidine 20 MG TABLET PO SCH ×2 (09:22→20:21)
[2018-12-11] MEDS: Cyanocobalamin (B-12) 1,000 MCG TABLET PO SCH (09:22)
[2018-12-11] MEDS: Aspirin Enteric Coated 81 MG Tablet PO SCH (09:22)
--- NOTE | 2018-12-11 12:50 | Electrocardiograph Report ---
[facility] [employer] Test Date: 2018-12-10 Pat Name: Leonela Quintanilla Department: [id number] Room: 3B43 Gender: F Miner: : 1945 Requested By: [id number] Order Number: [id number] Reading MD: Caio Luz Measurements Intervals [place] Rate: 61 P: 18 ID: [id number] QRS: -28 QRSD: 109 T: -31 QT: 387 QTc: 390 Interpretive Statements Sinus rhythm Borderline left axis deviation Abnormal R-wave progression, late transition Nonspecific T abnormalities, diffuse leads Electronically Signed On 12-11-2018 12:49:25 EDT by Caio Luz
--- NOTE | 2018-12-11 13:15 | Cardiology Consult Note ---
<Leanne Amezcua N - Last Filed: 12/11/18 15:18> Date of Encounter: 12/11/18 Time of Encounter: 13:13 Assessment and Plan (1) Abnormal stress test Current Visit: Yes Status: Acute Patient reports worsening chest pain over the last 7-10 days, which is associated with worsening shortness of breath and exercise intolerance. From review of stress test and cardiac testing history is highly suspicious that her symptoms are related to complete or nearly complete occlusion of the RCA. Patient's last LHC at this facility was in 2017; at that time, occlusion was encountered, which could not be passed with a wire. Subsequently, patient has b een transferred to [place] for LHC and interventions. Upon discussion of this with the patient, she voices that she would be interested in pursing a repeat LHC at this facility, even if only for diagnostic purposes. Recommendations: - Will discuss possibility of diagnostic LHC with scuba instructor. This may be beneficial from the standpoint of assessing for causes of patient's acutely worsening symptoms over the last 10 days, as well as providing information regarding any development of collateral circulation. - Due to patient's intolerance of imdur and ranexa (severe GI upset/nausea), we will start cardizem 30mg Q8H. - Cardiology will continue to follow. (2) CAD (coronary artery disease) Current Visit: No Status: Chronic History of 2-vessel CABG, with 1/2 bypass grafts patent, as SVG to PDA is occlud ed. Echocardiogram on 09/03/2018 demonstrated LVEF 60-65%. Continue aspirin, atorvastatin, and metoprolol. Qualifiers: Coronary Disease-Associated Artery/Lesion type: [place] artery [place] vs. transplanted heart: [place] heart Associated angina: with stable angina Qualified Code(s): I25.118 - Atherosclerotic heart disease of [place] coronary artery with other forms of angina pectoris (3) Essential hypertension Current Visit: No Status: Chronic Blood pressure currently well-controlled. Continue home blood pressure m edications. 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 All questions were answered. Thank you for involving us in the care of your patient. Please call with any questions. History of Present Illness Consult date: 12/11/18 Requesting physician: Pardeep Aviles Consult reason: Abnormal stress test Chief complaint: Chest pain History of present illness: Ms. Quintanilla is a 73 year old female with a history of CAD s/p PCI and CABG, diastolic CHF, [place], COPD, DM, [place], GERD, and RA. She presented to the ED yesterday for evaluation of substernal chest pressure with radation to the jaw, with associated shortness of breath. EKG demonstrated T-wave inversions, but no acute ST changes. Patient had negative troponin x3. She was admitted to the hospitalist service for further cardiac monitoring and workup. Stress test on 12/11/2018 showed medium-sized, moderate intensity stress perfusion defect involving the inferolateral segments consistent with ischemia, with no perfusion evidence for infarct. Pharmacologic stress ECG non-diagnostic for ischemia due to baseline non-specific ST and T changes. Gated EF >70%. Cardi ology consult placed for recommendations regarding these abnormal stress test findings. Previous cardiac testing as follows: * TTE 09/03/18: LVEF 60-65%. Normal LV chamber size and function. Mild concentric left ventricular hypertrophy.Mild left ventricular diastolic dysfunction. Atypical septal motion consistent with bundle branch block. Normal right ventricular structure and function. Mild aortic stenosis. Mean gradient 11 mmHg. No evidence of pulmonary hypertension. * Sleep study 08/20/18: Mild obstructive sleep apnea. * 08/2017: [facility] x1 stent in stent placed prior requiring artherectomy/laser of repeat ISR of ostial RCA. * TTE 08/12/17: LVEF 60%. Normal LV chamber size, wall thickness and overall function. Mild segmental left ventricular systolic dysfunction. Mild left ventricular diastolic dysfunction. No significant valvular dysfunction. * [facility] 05/2017 at [place]: PCI NABEEL ostial proximal and mid RCA. * [facility] 04/24/17: Previous stent in ostial RCA with severe in-stent stenosis with attempted intervention; wire was unable to be passed beyond lesion. Porcelain aorta. Saphenous vein graft to right PDA occluded. 50-60% ostial stenosis in proximal LAD. * Regadenoson nuclear stress 09/13/16: LVEF > 70%, mild reversible ischemia in the distal inferolateral wall. * TTE 09/12/16: LVEF 60%, normal RV, normal RVSP, no significant valvular dysfunction. * Intraoperative ALICIA 04/30/16: Mild , mild-moderate MR (ischemic), LVEF 55-60% (mild hypokinesis of basal inferior wall), normal RV size and function, severe atheromatous disease throughout the aorta. * CABG 04/30/16 at [facility]: FISHER to LAD and SVG to PDA. * [facility] 04/23/16: 99% ISR of ostial RCA. Patient was transferred to [facility]. * [facility] 01/16/16: High grade ISR of ostial RCA stent, 50% ostial LAD stenosis, underwent complex PCI of ostial RCA with NABEEL. * [facility] 10/08/15: NABEEL to 99% ostial RCA stenosis. * Limited TTE 10/13/15: LVEF 60%, mild basal-mid inferior hypokinesis. * TTE 10/05/15: LVEF 60%, mild diastolic dysfunction, normal RV size and function, mild-moderate (mean gradient 23 mmHg), mild MR, normal RVSP. Past Med Surg Social Fam HX - Past Medical History Medical history: arthritis, asthma, CHF, coronary artery disease, diabetes, GERD, hyperlipidemia, hypertension, myocardial infarction, RA Additional medical history: allergies, endometriosis, anemia, mild aortic stenosis Psychiatric history: no psych history - Past Surgical History Surgical History: angioplasty/stent, appendectomy, hysterectomy, orthopedic, other, YOANNA/BSO Additional surgical history: ovarian cyst removed, right hand surgery, colposcopy, dental surgery, CTR, eye surgery, - Social History Smoking Status: Never smoker Smokeless Tobacco Status: No Alcohol use: occasionally Drug use: none - Family History Father Living Status: Hx Family Cardiac Disorders: Yes ([place]) Hx Family Respiratory Disorders: No Hx Family Cancer: Yes (Prostate) Hx Family GI Disorders: No Hx Family Endocrine Disorder: No Hx Family Neuromuscular Disorders: No Hx Family Neurologic Disorders: No Hx Family HEENT Disorders: No Hx Family Autoimmune Disorders: No Mother Hx Family Cardiac Disorders: Yes ([place]) Hx Family Respiratory Disorders: No Hx Family Cancer: No Hx Family GI Disorders: No Hx Family Endocrine Disorder: Yes (DM) Hx Family Neuromuscular Disorders: No Hx Family Neurologic Disorders: No Hx Family HEENT Disorders: No Hx Family Autoimmune Disorders: No Medications and Allergies Multivitamin [Multivitamins] 1 tab PO DAILY 10/07/15 [History] hydroCHLOROthiazide [Hydrochlorothiazide] 25 mg PO DAILY 10/07/15 [History] Clopidogrel [Plavix] 75 mg PO DAILY 10/12/15 [History] Cyanocobalamin (Vitamin B-12) [Vitamin B12] 500 mcg PO DAILY 04/23/16 [History] Metoprolol [Lopressor] 25 mg PO BID 09/12/16 [History] Albuterol Sulfate [Albuterol Inhaler] 1 puff IH Q6HR 04/24/17 [History] Nitroglycerin [Nitrostat] 0.4 mg SL Q3-5MIN PRN 04/24/17 [History] Ranitidine HCl [Acid Gauger Delivery] 150 mg PO BID 04/24/17 [History] Folic Acid 1 mg PO QPM #0 03/24/18 [History] Lisinopril [Zestril] 10 mg PO QPM 12/10/18 [History] Albuterol Neb [Proventil Neb] 2.5 mg IH Q6H PRN 12/11/18 [History] Aspirin [Lo-Dose Aspirin EC] 81 mg PO DAILY 12/11/18 [History] Atorvastatin Calcium [Lipitor] 80 mg PO HS 12/11/18 [History] Calcium Carbonate/Vitamin D3 [Calcium 500 + Vit D Caplet] 2 tab PO QAM 12/11/18 [History] Fluticasone/Vilanterol [Breo Ellipta 100-25 Mcg INH] 1 puff IH DAILY 12/11/18 [History] Omeprazole [PriLOSEC] 40 mg PO HS 12/11/18 [History] Allergy/AdvReac Type Severity Reaction Status Date / Time cephalexin [From Keflex] Allergy Gastrointestinal Verified 12/11/18 10:54 Upset isosorbide [From Imdur] Allergy Gastrointestinal Verified 12/11/18 10:54 Upset shellfish derived Allergy Hives Verified 12/11/18 10:54 All Systems Review: The remainder of the systems were reviewed and are negative - Constitutional Constitutional: fatigue - Cardiovascular Cardiovascular: chest pain at rest, chest pain with exertion, dyspnea at rest, dyspnea on exertion, radiating jaw, neck or arm pain, no leg edema Physical Examination Vital Signs, Last 4 Hours Temp Pulse Resp BP Pulse Ox 12/11/18 13:07 98.1 F 74 16 133/75 96 12/11/18 09:31 97.5 F L 74 15 134/73 96 Other: GENERAL: Well-developed, well-nourished female sitting up on the bedside in no acute distress. HEENT: Atraumatic and normocephalic. CARDIOVASCULAR: Regular rate and rhythm. S1 and S2 present. 3/6 systolic murmur present. RESPIRATORY: Clear to auscultation bilaterally. Chest rises and falls symmetrically with respiration. No accessory muscle use noted. EXTREMITIES: No clubbing, cyanosis, or edema present. SKIN: Warm, dry, and intact. No rashes or discoloration visualized. NEUROLOGIC: Alert and oriented x3. Patient is cooperative with exam and answers questions appropriately. No apparent focal deficits. Results 12/10/18 10:06 12/11/18 01:23 Lab Results 12/10/18 12/10/18 12/11/18 15:51 21:59 01:23 Sodium 137 Potassium 3.9 Chloride 103 Carbon Dioxide 25 BUN 23 Creatinine 1.07 Glucose 126 H Calcium 9.9 Troponin I 0.03 0.03 Consult Discharge Plan - Plan Referrals: Brigitte Kirkpatrick MD [Primary Care Provider] - 12/19/18 9:00 am <Asmita Quintero - Last Filed: 12/11/18 17:19> Date of Encounter: 12/11/18 - Attending Attestation Patient was seen and evaluated independently by me. Findings, assessment and plan were discussed at length with patient, questions answered. Agree with nurse practitioner's/resident's documentation. Addition as follows, 73yoCF ho CABGX2 known patent FISHER-LAD and occluded SVG-RPDA, mild LCx stenosis, proximal RCA severe calcified ISR requiring rotor blade/PCI 05/2017 and again 08/2017 at [place], HFpEF, DM, COPD, RA. P/w progressive COLEMAN with exertional angina 2wks, class III. ECG SR, PRWP, NS STT abn. Trop neg. SPECT revealed significant inferior and inferolateral ischemia SDS 6-7, which is worse c/w 2017 study with pRCA 90% ISR on LHC, EF>70% TTE 08/2018 EF 60-65%, mild cLVH, mild DD, RV nl, mild MG 11, no PH. VSS, CTA B/L, RR, 3/6 SM max R-2nd ICS w/o sig radiation to carotids, preserved A2, no LE edema CBC wnl, no MISHA A: Accelerating angina class III with significant inferior/inferolateral ischemia on SPECT, suspected subacute total RCA occlusion with insufficient L-R collaterals Known severe ISR of pRCA s/p complicated PCI x2 (total 3 stents of same area) CABGx2 known patent FISHER-LAD and occluded SVG-RPDA Intolerant of imdur, ranexa and high dose of metoprolol (GI symptoms) Mild P: trial of diltiazem limited Echo for LVEF, WMA and c/w DAPT, statin, BB will discuss with interventional cardiology regarding LHC and feasibility of revascularization Asmita Quintero MD, PhD Assessment and Plan Discussion w patient/family: The assessment and plan as outlined above was discussed with the patient and/or family members who expressed understanding and agreement. All questions were answered. Thank you for involving us in the care of your patient. Please call w ith any questions. History of Present Illness History of present illness: Ms. Quintanilla is a 73 year old female All Systems Review: The remainder of the systems were reviewed and are negative Physical Examination Vital Signs, Last 4 Hours Temp Pulse Resp BP Pulse Ox 12/11/18 13:07 98.1 F 74 16 133/75 96 Results 12/10/18 10:06 12/11/18 01:23 Lab Results 12/10/18 12/11/18 21:59 01:23 Sodium 137 Potassium 3.9 Chloride 103 Carbon Dioxide 25 BUN 23 Creatinine 1.07 Glucose 126 H Calcium 9.9 Troponin I 0.03
--- NOTE | 2018-12-11 15:17 | Internal Med Progress Note ---
Hospitalist Progress Note - Encounter Date of Encounter: 12/11/18 Time of Encounter: 14:45 - Subjective Interval History: Ms. Quintanilla is a 73 year old female with history of coronary artery disease s/p PCI, s/p CABG, diastolic CHF, mild , diabetes, hyperlipidemia, hypertension and RA presented to ER with intermittent CP,more like pressure located sub s ternally, radiating to her b/l jaw. She also feels short of breath. She denied any PND, Orthopnea, however with exertion she feels chest pressure and SOB. She denied any leg edema. She had Echo done in 09/16 showed preserved LVEF, mild diastolic dysfunction and mild only. Pt mentioned she has these symptoms from last one week. In the ER her intial trop @ 0.03 and EKG showed - NSR, T wave inversion in inferior leads, No ST changes noticed. She was admitted in the hospital and placed on gambling monitor . Her serial troponin came back as negative . She denied any active CP now. - Exam Vitals: Temp Pulse Resp BP Pulse Ox 98.1 F 74 16 133/75 96 12/11/18 13:07 12/11/18 13:07 12/11/18 13:07 12/11/18 13:07 12/11/18 13:07 Exam: Gen: Alert, awake, Oriented to time,place and person Chest: Diminished breath sounds B/L, No wheezing, No crackles, No rales Heart: S1S2+ RRR No murmurs Abd: Soft, NT, BS +, No organomegaly Ext: No edema, pulses are palpable, No calf tenderness Neuro : No acute focal neuro deficits noticed Skin: No rash. - Assessment and Plan (1) Chest pain Current Visit: No Status: Resolved Assessment and Plan: Her serial troponin came back as negative she did go for nuclear stress to which came back as abnormal Medium sized, moderate intensity stress perfusion defect involving the inferolateral segments consistent with ischemia. No perfusion evidence for infarct. cont home meds, ASA, Plavix, Statin, BB and ACEI consular cardiology for further evaluation she may need possible LHC in AM will keep her NPO after midnight (2) CAD (coronary artery disease) Current Visit: No Assessment and Plan: s/p PCI and s/p CABG cont home meds - ASA, Plavix, Metoprolol and Lisinopril (3) Chronic diastolic CHF (congestive heart failure) Current Visit: Yes Status: Acute Assessment and Plan: not in exacerbation cont all home meds (4) Hyperlipidemia Current Visit: Yes Status: Acute Assessment and Plan: cont home med Statin reviewed FLP - LDL @ 47 (5) GERD (gastroesophageal reflux disease) Current Visit: Yes Status: Acute Assessment and Plan: on PPI + Zantac (6) Essential hypertension Current Visit: No Status: Chronic Assessment and Plan: stable BP cont home meds - Time Spent with Patient Total time spent is greater than 50% in coordination of care (as documented) at patient's floor/unit and/or counseling patient: Internal Medicine: Result - Labs CBC & Chem 7: 12/10/18 10:06 12/11/18 01:23 Labs: BMP 12/11/18 01:23 Sodium 137 Potassium 3.9 Chloride 103 Carbon Dioxide 25 BUN 23 Creatinine 1.07 Glucose 126 H Calcium 9.9 Cardiac Enzymes 12/10/18 12/10/18 Range/Units 15:51 21:59 Troponin I 0.03 0.03 (< 0.04) ng/mL - ABG Interpretation ABG results: PT/INR, D-dimer PT 11.8 Seconds (9.4-12.1) 12/10/18 10:06 Consult Discharge Plan - Plan Referrals: Brigitte Kirkpatrick MD [Primary Care Provider] - 12/19/18 9:00 am (1) Chest pain Qualifiers: Qualified Code(s): R07.2 - Precordial pain (2) CAD (coronary artery disease) Qualifiers: Qualified Code(s): I25.118 - Atherosclerotic heart disease of [place] coronary artery with other forms of angina pectoris (4) Hyperlipidemia Qualifiers: Qualified Code(s): E78.5 - Hyperlipidemia, unspecified (5) GERD (gastroesophageal reflux disease) Qualifiers: Qualified Code(s): K21.9 - Gastro-esophageal reflux disease without esophagitis
--- NOTE | 2018-12-12 08:08 | Cardiology Progress Note ---
Date of Encounter: 12/12/18 Time of Encounter: 08:08 Assessment and Plan (1) Abnormal stress test Current Visit: Yes Status: Acute Patient reports worsening chest pain over the last 7-10 days, which is associated with worsening shortness of breath and exercise intolerance. From review of stress test and cardiac testing history is highly suspicious that her symptoms are related to complete or nearly complete occlusion of the RCA. Patient's last LHC at this facility was in 2017; at that time, occlusion was encountered, which could not be passed with a wire. Subsequently, patient has been transferred to [facility] for LHC and interventions. Upon discussion of this with the patient, she voices that she would be interested in pursing a repeat LHC at this facility, even if only for diagnostic purposes. Recommendations: - Will discuss possibility of diagnostic LHC with receptionist nurse. This may be beneficial from the standpoint of assessing for causes of patient's acutely worsening symptoms over the last 10 days, as well as providing information regarding any development of collateral circulation. - Due to patient's intolerance of imdur and ranexa (severe GI upset/nausea), we will start cardizem 30mg Q8H. - Cardiology will continue to follow. (2) CAD (coronary artery disease) Current Visit: No Status: Chronic History of 2-vessel CABG, with 1/2 bypass grafts patent, as SVG to PDA is occluded. Echocardiogram on 09/03/2018 demonstrated LVEF 60-65%. Continue aspirin, atorvastatin, and metoprolol. Qualifiers: Coronary Disease-Associated Artery/Lesion type: [place] artery [place] vs. transplanted heart: [place] heart Associated angina: with stable angina Q ualified Code(s): I25.118 - Atherosclerotic heart disease of [place] coronary artery with other forms of angina pectoris (3) Essential hypertension Current Visit: No Status: Chronic Blood pressure currently well-controlled. Continue home blood pressure medications. 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 All questions were answered. Thank you for involving us in the care of your patient. Please call with any questions. Results 12/10/18 10:06 12/11/18 01:23 Consult Discharge Plan - Plan Referrals: Brigitte Kirkpatrick MD [Primary Care Provider] - 12/19/18 9:00 am
[2018-12-12] MEDS: Famotidine 20 MG TABLET PO SCH ×2 (09:39→21:13)
[2018-12-12] MEDS: Multivit/Ca/Min/Fe/FA 1 TAB TABLET PO SCH (09:39)
[2018-12-12] MEDS: Cholecalciferol (D-3) 1,000 UNIT TABLET PO SCH (09:39)
[2018-12-12] MEDS: hydroCHLOROthiazide 25 MG TABLET PO SCH (09:39)
[2018-12-12] MEDS: Cyanocobalamin (B-12) 1,000 MCG TABLET PO SCH (09:39)
[2018-12-12] MEDS: Aspirin Enteric Coated 81 MG Tablet PO SCH (09:40)
[2018-12-12] MEDS: Folic Acid 1 MG TABLET PO SCH (09:40)
--- NOTE | 2018-12-12 12:26 | Pre-Sedation Evaluation ---
Pre-sedation evaluation - Pre-sedation checklist Date of procedure: 12/12/18 Procedure: [facility] Recent Vitals: Last Vital Signs Temp 98.4 F 12/12/18 10:41 Pulse 58 12/12/18 10:41 Resp 16 12/12/18 10:41 BP 107/68 12/12/18 10:41 Pulse Ox 94 12/12/18 10:41 H&P (including ROS) documented in medical record: Yes Previous reaction to sedatives/anesthetics: No Dietary Status: NPO after Midnight Airway Assessment: Patient can open mouth completely, TMJ function normal, Micrognathia (under-bite, receding chin) absent, Neck with adequate range of mot ion Dentition: No loose teeth or bridges Possible difficult airway: No ASA Classification *see protocol: CLASS II-Mild systemic disease Plan of Care: Pt appropriate candidate for procedure/moderate/conscious sedation, Risks/benefits of procedure/sedation discussed w/ patient/family Cardiac Registry (Cardio Only) - Functional Capacity Functional Capacity: < 4 METS - Clincal Frailty Scale Clinical Frailty Scale: Vulnerable
[2018-12-12] MEDS ORDERED: ISOVUE-370 200 ML INFUS..BTL ONE ×2 (12:48→13:00)
[2018-12-12] MEDS ORDERED: Heparin 1,000 UNITS/500 mL 500 ML ONE (12:48)
[2018-12-12] MEDS ORDERED: 0.9 % Sodium Chloride 1,000 ML ONE ×2 (12:48→12:59)
[2018-12-12] MEDS ORDERED: *HR* Heparin 10,000 UNIT/10 ML VIAL ONE (12:48)
[2018-12-12] MEDS ORDERED: Nitroglycerin 1,000 MCG/10 ML VIAL IV ONE (12:48)
[2018-12-12] MEDS ORDERED: *HR* Bivalirudin 250 MG VIAL IVC ONE ×2 (12:59→13:44)
[2018-12-12] MEDS ORDERED: *HR* FentaNYL (PF) 100 MCG/2 ML VIAL ONE (13:06)
[2018-12-12] MEDS ORDERED: *HR* Midazolam HCl 2 MG/2 ML VIAL ONE (13:06)
[2018-12-12] MEDS ORDERED: methylPREDNISolone 125 MG/2 ML VIAL ONE (13:07)
--- NOTE | 2018-12-12 15:09 | Event Note ---
Date of Encounter: 12/12/18 Time of Encounter: 15:03 - Cardiology Event Note LHC revealed severe in stent re-stenosis in the ostial-proximal RCA. SVG to PDA chronically occluded. RCA ia not amendable to PCI. Patient is on maximal tolerated medical therapy. Discussed with Dr. Nellie Bobby. Patient is recomm ended to discuss brachytherapy at [facility]. Appointment is being made for out-pt referral. Cardiology will sign off. Call with questions.
--- NOTE | 2018-12-12 16:19 | Internal Med Progress Note ---
Hospitalist Progress Note - Encounter Date of Encounter: 12/12/18 Time of Encounter: 16:16 - Subjective Interval History: Ms. Quintanilla is a 73 year old female with history of coronary artery disease s/p PCI, s/p CABG, diastolic CHF, mild , diabetes, hyperlipidemia, hypertension and RA presented to ER with intermittent CP,more like pressure located sub s ternally, radiating to her b/l jaw. She also feels short of breath. She denied any PND, Orthopnea, however with exertion she feels chest pressure and SOB. She denied any leg edema. She had Echo done in 09/16 showed preserved LVEF, mild diastolic dysfunction and mild only. Pt mentioned she has these symptoms from last one week. In the ER her intial trop @ 0.03 and EKG showed - NSR, T wave inversion in inferior leads, No ST changes noticed. She was admitted in the hospital and placed on quality assurance monitor . Her serial troponin came back as negative . Her nuclrear stress test came back as abnormal. She was evaluated by Card , who did LHC today. I have seen and examined her at Cardiac cath recovery room. She denied any active CP now. Pt stated with medications changes, her pain better now. - Exam Vitals: Temp Pulse Resp BP Pulse Ox 98.4 F 58 16 107/68 94 12/12/18 10:41 12/12/18 10:41 12/12/18 10:41 12/12/18 10:41 12/12/18 10:41 Exam: Gen: Alert, awake, Oriented to time,place and person Chest: Diminished breath sounds B/L, No wheezing, No crackles, No rales Heart: S1S2+ RRR No murmurs Abd: Soft, NT, BS +, No organomegaly Ext: No edema, pulses are palpable, No calf tenderness Neuro : No acute focal neuro deficits noticed Skin: No rash. - Assessment and Plan (1) Chest pain Current Visit: No Status: Resolved Assessment and Plan: Her serial troponin came back as negative she did go for nuclear stress to which came back as abnormal Medium sized, moderate intensity stress perfusion defect involving the inferolateral segments consistent with ischemia. No perfusion evidence for infa rct. cont home meds, ASA, Plavix, Statin, BB and ACEI and Cardizem 30mg Q8hr Pt was evaluated by Cardiology and did LHC today Her LHC showed severe in stent re-stenosis in the ostial-proximal RCA. SVG to PDA chronically occluded. RCA ia not amendable to PCI. Patient is on maximal tolerated medical therapy. So patient is recommended to discuss brachytherapy at [facility]. Appointment is being made for out-pt referral. Possible d/c home in AM with current medication regimen (2) CAD (coronary artery disease) Current Visit: No Assessment and Plan: s/p PCI and s/p CABG cont home meds - ASA, Plavix, Metoprolol and Lisinopril On Cardizem 30mg Q8hr (3) Chronic diastolic CHF (congestive heart failure) Current Visit: Yes Status: Acute Assessment and Plan: not in exacerbation cont all home meds (4) Hyperlipidemia Current Visit: Yes Status: Acute Assessment and Plan: cont home med Statin reviewed FLP - LDL @ 47 (5) GERD (gastroesophageal reflux disease) Current Visit: Yes Status: Acute Assessment and Plan: on PPI + Zantac (6) Essential hypertension Current Visit: No Status: Chronic Assessment and Plan: stable BP cont home meds - Time Spent with Patient Total time spent is greater than 50% in coordination of care (as documented) at patient's floor/unit and/or counseling patient: Internal Medicine: Result - Labs CBC & Chem 7: 12/10/18 10:06 12/11/18 01:23 - ABG Interpretation ABG results: PT/INR, D-dimer PT 11.8 Seconds (9.4-12.1) 12/10/18 10:06 - Impressions Impressions Echocardiogram Limited Views 12/12/18 07:00 Impressions: LVEF 65%. Normal LV chamber size and systolic function. Moderate concentric left ventricular hypertrophy. Moderately calcified aortic valve leaflets. Mild aortic stenosis by Doppler. Peak aortic velocity is 2.54m/s and mean gradient is 13mmHg. Left Ventricular Wall Motion: Rest Echo Findings All wall segments showed normal motion. Findings: Study Quality * Technically adequate exam. ECG Findings * Normal sinus rhythm. Left Ventricle * Atypical septal motion consistent with post-operative status. * Moderate concentric left ventricular hypertrophy. * LVEF 65%. * Normal LV chamber size and systolic function. Left Atrium * Normal left atrial size. Right Atrium * Normal right atrial size. Aortic Valve * Aortic valve not well visualized. * Moderately calcified aortic valve leaflets. * Trace aortic regurgitation. * Mild aortic stenosis by Doppler. Peak aortic velocity is 2.54m/s and mean gradient is 13mmHg. Mitral Valve * Moderate mitral annular calcification Consult Discharge Plan - Plan Referrals: Brigitte Kirkpatrick MD [Primary Care Provider] - 12/19/18 9:00 am (1) Chest pain Qualifiers: Chest pain type: precordial pain Qualified Code(s): R07.2 - Precordial pain (2) CAD (coronary artery disease) Qualifiers: Coronary Disease-Associated Artery/Lesion type: [place] artery [place] vs. transplanted heart: [place] heart Associated angina: with stable angina Qualified Code(s): I25.118 - Atherosclerotic heart disease of [place] coronary artery with other forms of angina pectoris (4) Hyperlipidemia Qualifiers: Hyperlipidemia type: unspecified Qualified Code(s): E78.5 - Hyperlipidemia, unspecified (5) GERD (gastroesophageal reflux disease) Qualifiers: Esophagitis presence: without esophagitis Qualified Code(s): K21.9 - Gastro- esophageal reflux disease without esophagitis
--- NOTE | 2018-12-12 16:20 | Invasive Diagnostic Lab Proc ---
Name: Leonela Quintanilla Date of Study: 12/12/2018 Date: 1945 Ht: 61.8in Medical Record#: [id number] Age: 73 Wt: 185.85lb Gender: Female BSA: 1.85 Order #: [id number] BMI: 34.2 Physicians Procedure Physician: Nellie Bobby MD, [facility] Referring MD: Referring MD: Staff Name Position Time In Tae Peterson RN Prototype Special Build 01:12 PM Connor Tipton RT (R) Monitor 01:12 PM Debra Rodriguez RT (R) Scrub 01:12 PM Nellie Serrano RT (R) Scrub 01:12 PM Procedures Performed Procedure L HRT ART/GRFT ANGIO Pre-Procedure Checklist Informed consent is complete signed and on chart. H&P is on chart. ID band is on and ID verified with patient. Patient NPO for procedure The procedure was described for the patient and questions were answered. Blood Pressure: 152/65 ECG is on chart. Rhythm: NSR Plan of Care Patient will tolerate the procedure without complications. Adequate level of comfort will be maintained. Hemodynamics will remain stable Patient will recover from procedure without complications. Respiratory function will be maintained. Cardiac rhythm will remain stable. Patient temperature will be maintained. Patient and/or family have verbalized understanding of the procedure. Patient Education Chief Complaint/Reason for Test: Cardiac Cath Developmental Category: Geriatric (65+ years) Developmentally Appropriate for Age: Yes Learning Barriers: None Education Needs: Procedure Education Method: Verbal Information Taught: Cardiac Cath Educational Evaluation: Able to repeat information Intravenous Access Time IV Size Location DC'd Fluid/Drip Rate Units RN 01:09 PM 20g 1 1/" Patent On Arrival Lt Hand 0.9NaCl 50 ml/hr Tae Peterson RN Allergies contrast shellfish derived isosorbide cephalexin Amoxicillin Vital Signs Time BP (mmHg) HR (bpm) O2 Sat. RR (bpm) LOC 01:04 PM 152 / 65 63 97 % 14 5 = Fully awake and oriented or at pre-proc level 01:12 PM / % 5 = Fully awake and oriented or at pre-proc level 01:12 PM / % 4 = Oriented but drowsy 01:27 PM / % 4 = Oriented but drowsy 01:42 PM / % 4 = Oriented but drowsy 01:10 PM 152 / 65 62 97 % 23 01:15 PM 133 / 59 58 97 % 23 01:20 PM 135 / 67 60 98 % 21 01:25 PM 133 / 64 54 94 % 20 01:30 PM 143 / 64 61 95 % 19 01:35 PM 129 / 61 59 95 % 17 01:40 PM 132 / 62 62 95 % 20 01:45 PM 137 / 65 65 95 % 21 01:50 PM 132 / 65 65 94 % 22 01:55 PM 141 / 64 67 94 % 19 02:10 PM 128 / 56 66 94 % 16 5 = Fully awake and oriented or at pre-proc level 02:30 PM 130 / 66 64 95 % 16 5 = Fully awake and oriented or at pre-proc level 02:45 PM 117 / 71 65 96 % 16 5 = Fully awake and oriented or at pre-proc level 03:00 PM 130 / 74 63 93 % 16 5 = Fully awake and oriented or at pre-proc level 03:15 PM 126 / 61 63 94 % 18 5 = Fully awake and oriented or at pre-proc level 03:30 PM 113 / 68 64 95 % 18 5 = Fully awake and oriented or at pre-proc level 03:45 PM 127 / 65 66 95 % 16 5 = Fully awake and oriented or at pre-proc level 04:00 PM 120 / 91 65 95 % 16 5 = Fully awake and oriented or at pre-proc level Procedural Medications Time Medication Dose Units Method Given By 01:12 PM Benadryl 25 mg Intravenous Tae Peterson RN 01:12 PM Solu-medrol 125 mg Intravenous Tae Peterson RN 01:12 PM Versed 1 mg Intravenous Tae Peterson RN 01:12 PM Fentanyl 25 mcg Intravenous Tae Peterson RN 01:20 PM Benadryl 25 mg Intravenous Tae Peterson RN 01:20 PM Lidocaine 2% 20 ml Subcutaneous Nellie Bobby MD, FACC 01:42 PM Angiomax 0.75mg/kg bolus: 12 ml Intravenous Tae Peterson RN 01:42 PM Angiomax 1.75mg/kg/hr: 28 ml/hr Intravenous Tae Peterson RN 01:50 PM Angiomax 1.75mg/kg/hr: 28 ml/hr Dc'd Tae Peterson RN ASA Classification: CLASS II- Mild systemic disease (i.e. well-controlled diabetes, hypertension, asthma, cigarette smoking) Queenie Score Preprocedure Postprocedure Activity 2- Moves 4 extremities sustained head lift Activity 2- Moves 4 extremities sustained head lift Circulation 2- SBP +/= 20 points of pre-anesthetic level Circulation 2- SBP +/= 20 points of pre-anesthetic level Consciousness 2- Awake and alert oriented x 3 Consciousness 2- Awake and alert oriented x 3 O2 Saturation 2- Able to maintain O2 satruation of 92% on room air O2 Saturation 2- Able to maintain O2 satruation of 92% on room air Respiratory 2- Able to deep breathe and cough well Respiratory 2- Able to deep breathe and cough well Total Score 10 Total Score 10 Contrast Agent: Isovue Diagnostic Contrast: 104 ml Total Contrast: 104 ml Fluoro Dose: 51 mGy Procedure Log Time Note Enter By 12:54 PM CathStat 01:09 PM Vitals capture started with the following parameters, Patient=Adult, Interval=5 min, Initial Cnazeweo=287 mmHg, Deflation Rate=5 mmHg, Cuff placed on Left Arm 01:09 PM Pt arrived to collaborative physician 2 at 13:09 : PM Patient charges- Angio tray pack, Navilyst 3mm J, Pulse Oximetry and ACIST tubing and transducer : PM Case Delayed No : PM HR=62 bpm, JVVI=420/65 mmhg, SpO2=97.0 %, Resp=23 B/min :10 PM Hair removed from procedure site in procedure lab using clippers. Bilateral groin prepped with Chloraprep by Debra Rodriguez (Paras), then patient was draped. Skin intact. : PM Physician arrived 13:11 PM Johnnie and farhana completed : PM Sign in performed according to hospital policy. Informed consent was obtained. : PM Procedure start 13:11 : PM ASA Class CLASS II- Mild systemic disease (i.e. well-controlled diabetes, hypertension, asthma, cigarette smoking) : PM Time: 13:10 Solu-medrol 125 mg Intravenous Given by Tae Peterson RN :12 PM Recorded ECG: HR=60 Condition=Condition 1 :12 PM Time: 13:11 Versed 1 mg Intravenous Given by Tae Peterson RN :12 PM Procedure start 13:11 :12 PM Time: 13:11 Fentanyl 25 mcg Intravenous Given by Tae Peterson RN :12 PM Time: 13:12 Patient comfortable and pain free: Yes :12 PM Time: 13:12LOC: 5 = Fully awake and oriented or at pre-proc level :12 PM Tae Peterson RN Position: Prototype Special Build Time in: 13:12 :12 PM Connor Tipton RT (R) Position: Monitor Time in: :12 :12 PM Debra Rodriguez RT (R) Position: Scrub Time in: 13:12 :12 PM Time: 13:10 Benadryl 25 mg Intravenous Given by Tae Peterson RN :13 PM Nellie Serrano RT (R) Position: Scrub Time in: 13:12 01:15 PM HR=58 bpm, BQOK=318/59 mmhg, SpO2=97.0 %, Resp=23 B/min 01:15 PM Pressure channel 1 zeroed. 01:19 PM Time out was performed according to hospital policy. Conscious sedation and anesthesia was achieved (see medication log with in this report above) :20 PM HR=60 bpm, BEHK=131/67 mmhg, SpO2=98.0 %, Resp=21 B/min, EtCO2=32 mmHg 01:20 PM Time: 13:20 Benadryl 25 mg Intravenous Given by Tae Peterson RN :21 PM Time: 13:20 20 ml Lidocaine 2% to right groin Subcutaneous Given by Nellie Bobby MD, [facility] :22 PM Access obtained by percutaneous puncture. 5Fr 10cm Terumo [place] sheath placed in right Femoral artery. [id number] :22 PM 0.035 145cm Navilyst 3mmJ wire [id number] :23 PM 5Fr FL 4 catheter inserted over the wire [facility] :24 PM LCA angiography performed in multiple views. :24 PM Recorded Pressure: Ao, HR=60, Condition=Condition 1 (Aorta) Ao 148/68/101 01:25 PM Catheter removed :25 PM HR=54 bpm, QDAL=417/64 mmhg, SpO2=94.0 %, Resp=20 B/min, EtCO2=31 mmHg : PM 5Fr FR 4 catheter inserted over the wire [facility] : PM RCA angiography performed in multiple views. PM Recorded Pressure: Ao, HR=62, Condition=Condition 1 (Aorta) Ao 154/63/98 01: PM Coronary Dominance: right PM Time: 13:12 Patient comfortable and pain free: Yes PM Time: 13:12LOC: 4 = Oriented but drowsy : PM Catheter removed PM 0.035 260cm Navilyst 3mmJ wire [id number] :29 PM 5Fr IM catheter inserted over the wire [id number] :30 PM HR=61 bpm, LHIO=827/64 mmhg, SpO2=95.0 %, Resp=19 B/min, EtCO2=31 mmHg :31 PM Left CAROLIN to the LAD angio performed in multiple views. :33 PM Catheter removed :33 PM 5Fr Pigtail catheter inserted over the wire [facility] :34 PM Catheter crossed the aortic valve and was selectively placed in the left ventricle. Pressures recorded on pullback for left heart catheterization. :34 PM Pressure channel 1 zeroed. 01:35 PM Recorded Pressure: LV, HR=62, Condition=Condition 1 (Left Ventricle) LV 151/-7/31 :35 PM HR=59 bpm, QIOY=453/61 mmhg, SpO2=95.0 %, Resp=17 B/min 01:35 PM Recorded Pressure: LV, Ao, HR=63, Condition=Condition 1 (Left Ventricle) LV 128/4/28, (Aorta) Ao 105/50/74 01:35 PM Bolus angiogram of left Ventricle complete: 8 ml/sec for a total of 24 mls :35 PM Catheter removed :35 PM Physician reviewing films :39 PM Lesion found in Proximal RCA. Pre Stenosis: 99 Pre VASHTI Flow: :39 PM Right Coronary, Right Posterior Descending Arteries with Right Posterolateral and Acute Marginal branches with 99 % stenosis. If graft is supplying this area, 0 % stenosis [email or web address] 01:39 PM Inflation device was opened. [email or web address] 01:40 PM HR=62 bpm, PEQG=569/62 mmhg, SpO2=95.0 %, Resp=20 B/min, EtCO2=35 mmHg 01:40 PM Sheath exchanged for a 6 Fr 11 cm Cordis Ericka sheath [id number] [email or web address] 01:42 PM 6Fr 3DRC [place] Bright-Tip guide catheter was used to cannulate the PCI vessel successfully. reused? No 2 :42 PM Time: 13:27LOC: 4 = Oriented but drowsy :42 PM Time: 13:27 Patient comfortable and pain free: Yes :42 PM Time: 13:42 Angiomax 0.75mg/kg bolus: 12 ml Intravenous Given by Tae Peterson RN Montejo pump 01:43 PM Time: 13:42 Angiomax 1.75mg/kg/hr: 28 ml/hr Intravenous Given by Tae Peterson RN Montejo pump :43 PM .014 Prowater 180cm guide wire across target lesion- successful. reused? No [email or web address] 01:45 PM HR=65 bpm, SYFZ=351/65 mmhg, SpO2=95.0 %, Resp=21 B/min, EtCO2=31 mmHg 01:50 PM Guide wire removed intact. [email or web address] 01:50 PM Guide catheter removed intact. [email or web address] 01:50 PM HR=65 bpm, USZZ=609/65 mmhg, SpO2=94.0 %, Resp=22 B/min 01:50 PM Time: 13:50 Angiomax 1.75mg/kg/hr: 28 ml/hr Dc'd Given by Tae Peterson RN Montejo pump [email or web address] 01:51 PM Bolus angiogram of right Femoral complete: 4 ml/sec for a total of 7 mls [email or web address] 01:54 PM Procedure completed at 13:54 12/12/2018 bw 01:54 PM Sign out completed: Radiation Dose 380.16 mGy, 51.3 Gy/cm2 Fluoro Time: 11.7 Isovue 370 - 200ml contrast 104 ml given by Nellie Bobby MD, FACC. Complications: None. The patient was discharged out of the catheterization laboratory technician in stable condition. Sedation minutes 47. Cardiac Rehab Consult needed: Yes. Confirmed administered medications: Yes [email or web address] 01:54 PM Isovue 370 - 200ml,1 Bottle(s) used. [email or web address] 01:55 PM Sheath left in place to be pulled on floor/holding areaV+Pad [email or web address] 01:55 PM Estimated Blood Loss: less than 20cc [email or web address] :55 PM Post ECG NSR bw2 :55 PM Post Blood Pressure 132/65 [email or web address] 01:55 PM HR=67 bpm, YNZV=408/64 mmhg, SpO2=94.0 %, Resp=19 B/min 01:55 PM 13:55 Post Pulses Bilateral DP & PT 1+ [email or web address] :55 PM Information taught Cardiac Cath and PCI [email or web address] 01:55 PM Education needs Procedure, Plan of Care, and Disease Process [email or web address] 01:55 PM Learning barriers :Sedated [email or web address] 01:55 PM Education Methods Verbal [email or web address] 01:55 PM Education evaluation Needs further instruction [email or web address] :56 PM Site status No bleeding/hematoma - Rt Groin as reported by Debra Rodriguez RT (R) at 13:55 [email or web address] 01:56 PM Opsite applied [email or web address] :56 PM Delay to floor sheath to be pulled in holding room [email or web address] :56 PM Complications: None [email or web address] :56 PM No family bw:57 PM Lesion found in Mid RCA. Pre Stenosis: 30 Pre VASHTI Flow: 2 :57 PM Lesion found in Distal LMCA. Pre Stenosis: 25 Pre VASHTI Flow: 2 :57 PM Left Main Coronary Artery with 25% stenosis :57 PM Time: 13:42 Patient comfortable and pain free: Yes :57 PM Time: 13:42LOC: 4 = Oriented but drowsy bw2 :57 PM Lesion found in Proximal LAD. Pre Stenosis: 50 Pre VASHTI Flow: 2 :57 PM Proximal Left Anterior Descending Coronary Artery with 50% stenosis. If graft is supplying this territory, 0 % stenosis. [email or web address] :58 PM Lesion found in Mid LAD. Pre Stenosis: 40 Pre VASHTI Flow: 2 :58 PM Mid/Distal Left Anterior Descending Coronary Artery and diagonal branches with 40% stenosis. If graft is supplying this area, 0 % stenosis [email or web address] 01:58 PM Lesion found in Proximal Circumflex. Pre Stenosis: 30 Pre VASHTI Flow: [email or web address] 01:58 PM Circumflex, Obtuse Marginal, Left Posterior Descending, and Left Posterolateral Coronary Arteries with 30 % stenosis. If graft is supplying this area, 0 % stenosis [email or web address] 01:58 PM Lesion found in Ramus. Pre Stenosis: 25 Pre VASHTI Flow: [email or web address] 01:58 PM Ramus with 25% stenosis. If graft is supplying this area, 0 % stenosis [email or web address] 02:07 PM Patient out of room: 14:07 [email or web address] 02:07 PM Report given to luciano FIGUEREDO Pt taken to Holding room Room #1. 14:07 [email or web address] 03:43 PM Arterial sheath pulled using manual compression and V+ Pad for 15 minutes by Santo Ruiz RN [email or web address] 03:50 PM Hospitalist in to speak with patient and discuss plan of care [email or web address] 03:56 PM Report called to Eloisa on 3B mprater 04:00 PM Hemostsis Achieved. Right femoral site dressing d//I mprater 04:09 PM Patient transfered to 3B mprater Complications Complication None None Hemodynamics Pressures Site Systolic/A Wave Diastolic/V Wave Mean AO 148 68 101 AO 154 63 98 LV 151 -7 31 LV 128 4 28 AO 105 50 74 Post Procedure Information Blood Pressure: 132/65 mmHg Rhythm: NSR Post procedural instructions were given Site Checks Time Location Status Staff Sheath In? Note 01:55 PM Rt Groin No bleeding/hematoma Debra Rodriguez RT (R) 02:10 PM Rt Groin No bleeding/ No Hematoma Luciano Eubanks RN 02:30 PM Rt Groin No bleeding/ No Hematoma Lien Walker RN Yes 02:45 PM Rt Groin No bleeding/ No Hematoma Lien Walker RN Yes 03:00 PM Rt Groin No bleeding/ No Hematoma Lien Walker RN Yes 03:15 PM Rt Groin No bleeding/ No Hematoma Santo Ruiz RN Yes 03:30 PM Rt Groin No bleeding/ No Hematoma Santo Ruiz RN Yes 03:45 PM Rt Groin No bleeding/ No Hematoma Lien Walker RN 04:00 PM Rt Groin No bleeding/ No Hematoma Lien Walker RN Pulses Time Site Pre-Procedure Post-Procedure Note 12/12/2018 1:09:00 PM Bilateral DP & PT 1+ 1:55:00 PM Bilateral DP & PT 1+ 12/12/2018 2:10:00 PM Bilateral DP & PT 1+ 12/12/2018 2:30:00 PM Bilateral DP & PT 1+ 12/12/2018 4:00:00 PM Bilateral DP & PT 1+ Updated by Lien Walker RN on 12/12/2018 4:10:25 PM Lien Walker RN electronically signed on 12/12/2018 4:11:18 PM with status of Final
[2018-12-12] MEDS: Loratadine 10 MG TABLET PO SCH (23:33)
[2018-12-13 08:06] VITALS: BP 133/71
--- NOTE | 2018-12-13 08:44 | Discharge Summary ---
- NOTES TO OUTPATIENT PROVIDER Notes to Outpatient Provider: f/u with [facility] within a week, cardiology dept here will arrange. F/u with PCP within 2 weeks. Orders not resulted at time of discharge: Pending orders 12/10/18 15:39 NM bernadette perf SPECT multi [NM] Routine Date of Encounter: 12/13/18 Time of Encounter: 08:41 - Discharge Diagnosis (1) Chest pain Priority: Primary Status: Resolved Qualifiers: Chest pain type: precordial pain Qualified Code(s): R07.2 - Precordial pain (2) CAD (coronary artery disease) Priority: Secondary Qualifiers: Coronary Disease-Associated Artery/Lesion type: [place] artery [place] vs. transplanted heart: [place] heart Associated angina: with stable angina Qualified Code(s): I25.118 - Atherosclerotic heart disease of [place] coronary artery with other forms of angina pectoris (3) Essential hypertension Priority: Secondary Status: Chronic (4) Hyperlipidemia Priority: Secondary Status: Chronic Qualifiers: Hyperlipidemia type: unspecified Qualified Code(s): E78.5 - Hyperlipidemia, unspecified (5) GERD (gastroesophageal reflux disease) Priority: Secondary Status: Chronic Qualifiers: Esophagitis presence: without esophagitis Qualified Code(s): K21.9 - Gastro-esophageal reflux disease without esophagitis (6) Chronic diastolic CHF (congestive heart failure) Priority: Secondary Status: Chronic Hospital course: Ms. Quintanilla is a 73 year old female with history of coronary artery disease s/p PCI, s/p CABG, diastolic CHF, mild , diabetes, hyperlipidemia, hypertension and RA presented to ER with intermittent CP,more like pressure located sub sternally, radiating to her b/l jaw. She also feels short of breath. She denied any PND, Orthopnea, however with exertion she feels chest pressure and SOB. She denied any leg edema. She had Echo done in 09/16 showed preserved LVEF, mild diastolic dysfunction and mild only. Pt mentioned she has these symptoms from last one week. In the ER her intial trop @ 0.03 and EKG showed - NSR, T wave inversion in inferior leads, No ST changes noticed. Patient was admitted for further evaluation, Serial troponin was negative, EKG has no acute ST-T change. Patient underwent echocardiogram which revealed LV ejection fraction 65%, normal LV chamber size and systolic function, moderate LVH, and mild aortic stenosis. A stress test was also performed however was inconclusive. Patient subsequently underwent left heart catheter on 12/12/2018 which revealed 99% in-stent stenosis in the proximal RCA which is unamenable to treatment. Cardiology recommended continue aggressive medical management including evaluation for possible bradytherapy. Oral Cardizem was started, however, patient suffered from severe side effects including headache and abdominal upset, and Cardizem has to be stopped. On the discharge today, patient vital signs were stable except slightly bradycardia with heart rate 101, she denies any chest pain, her labs were un remarkable. Patient will be discharged home, she will follow-up in the cardiology at the [facility] next week which was set up by our cardiology department. She was also instructed to continue follow-up with PCP as scheduled. Discharge discussed with: patient Time spent discussing smoking cessation with patient: more than 10 minutes - Time Spent with Patient Total time spent providing and/or coordinating discharge services: Time spent: D/C greater than 8 hours after Admission - Discharge Medications Prescriptions: Continued Multivitamin [Multivitamins] 1 tab PO DAILY hydroCHLOROthiazide [Hydrochlorothiazide] 25 mg PO DAILY Clopidogrel [Plavix] 75 mg PO DAILY Cyanocobalamin (Vitamin B-12) [Vitamin B12] 500 mcg PO DAILY Metoprolol [Lopressor] 25 mg PO BID Albuterol Sulfate [Albuterol Inhaler] 1 puff IH Q6HR Ranitidine HCl [Acid Linen Room Custodian] 150 mg PO BID Nitroglycerin [Nitrostat] 0.4 mg SL Q3-5MIN PRN PRN Reason: Chest Pain Folic Acid 1 mg PO QPM #0 Lisinopril [Zestril] 10 mg PO QPM Albuterol Neb [Proventil Neb] 2.5 mg IH Q6H PRN PRN Reason: Shortness Of Breath Aspirin [Lo-Dose Aspirin EC] 81 mg PO DAILY Atorvastatin Calcium [Lipitor] 80 mg PO HS Calcium Carbonate/Vitamin D3 [Calcium 500 + Vit D Caplet] 2 tab PO QAM Fluticasone/Vilanterol [Breo Ellipta 100-25 Mcg INH] 1 puff IH DAILY Omeprazole [PriLOSEC] 40 mg PO HS Home Medications: Multivitamin [Multivitamins] 1 tab PO DAILY 10/07/15 [History] hydroCHLOROthiazide [Hydrochlorothiazide] 25 mg PO DAILY 10/07/15 [History] Clopidogrel [Plavix] 75 mg PO DAILY 10/12/15 [History] Cyanocobalamin (Vitamin B-12) [Vitamin B12] 500 mcg PO DAILY 04/23/16 [History] Metoprolol [Lopressor] 25 mg PO BID 09/12/16 [History] Albuterol Sulfate [Albuterol Inhaler] 1 puff IH Q6HR 04/24/17 [History] Nitroglycerin [Nitrostat] 0.4 mg SL Q3-5MIN PRN 04/24/17 [History] Ranitidine HCl [Acid Linen Room Custodian] 150 mg PO BID 04/24/17 [History] Folic Acid 1 mg PO QPM #0 03/24/18 [History] Lisinopril [Zestril] 10 mg PO QPM 12/10/18 [History] Albuterol Neb [Proventil Neb] 2.5 mg IH Q6H PRN 12/11/18 [History] Aspirin [Lo-Dose Aspirin EC] 81 mg PO DAILY 12/11/18 [History] Atorvastatin Calcium [Lipitor] 80 mg PO HS 12/11/18 [History] Calcium Carbonate/Vitamin D3 [Calcium 500 + Vit D Caplet] 2 tab PO QAM 12/11/18 [History] Fluticasone/Vilanterol [Breo Ellipta 100-25 Mcg INH] 1 puff IH DAILY 12/11/18 [History] Omeprazole [PriLOSEC] 40 mg PO HS 12/11/18 [History] Allergies/Adverse Reactions: Allergy/AdvReac Type Severity Reaction Status Date / Time cephalexin [From Keflex] Allergy Gastrointestinal Verified 12/11/18 10:54 Upset isosorbide [From Imdur] Allergy Gastrointestinal Verified 12/11/18 10:54 Upset shellfish derived Allergy Hives Verified 12/11/18 10:54 Date of admission: 12/10/18 13:05 Primary care physician: Brigitte Kirkpatrick MD Consults: 12/11/18 13:08 Consult to Cardiology [CONS] Routine Comment: Consulting Provider: Cardiology Faith Reason for Consult: Abnormal stress test Time Notified: 13:08 Call Completed: Yes Anticipated date of discharge: 12/13/18 - Constitutional Vitals: Temp Pulse Resp BP Pulse Ox 97.8 F 101 20 133/71 94 12/13/18 08:00 12/13/18 08:00 12/13/18 08:00 12/13/18 08:00 12/13/18 08:00 General appearance: Present: cooperative, A&O X 3, no acute distress, answers questions appropriately Exam: Gen: Alert, awake, Oriented to time,place and person Chest: Diminished breath sounds B/L, No wheezing, No crackles, No rales Heart: S1S2+ RRR No murmurs Abd: Soft, NT, BS +, No organomegaly Ext: No edema, pulses are palpable, No calf tenderness Neuro : No acute focal neuro deficits noticed Skin: No rash. - Patient Status Disposition: Home, Self-Care Condition: Fair Functional capacity at discharge: independent ambulation Overall status at discharge: patient is progressing back to baseline - Discharge Instructions Follow Up With: Brigitte Kirkpatrick MD [Primary Care Provider] - 12/19/18 9:00 am - Diet and Activity Activity: resume usual activities as tolerated Diet: low fat, low cholesterol, low salt diet
[2018-12-13] MEDS: Loratadine 10 MG TABLET PO SCH (10:44)
[2018-12-13] MEDS: Cyanocobalamin (B-12) 1,000 MCG TABLET PO SCH (10:45)
[2018-12-13] MEDS: Famotidine 20 MG TABLET PO SCH (10:45)
[2018-12-13] MEDS: Folic Acid 1 MG TABLET PO SCH (10:45)
[2018-12-13] MEDS: Cholecalciferol (D-3) 1,000 UNIT TABLET PO SCH (10:45)
[2018-12-13] MEDS: hydroCHLOROthiazide 25 MG TABLET PO SCH (10:45)
[2018-12-13] MEDS: Aspirin Enteric Coated 81 MG Tablet PO SCH (10:45)
[2018-12-13] MEDS: Multivit/Ca/Min/Fe/FA 1 TAB TABLET PO SCH (10:45)
== END 2018-12-13 12:10 | disposition home or self-care (01) ==
LOC: 3BNU 09:56 → EMEROOARM 09:56 → SUATTDRO 13:05 → 3BNU 13:40
PROVIDERS: ADMIT Internal Medicine Nephrology; ATTEND Family Medicine